=== PATIENT | male | born 1945 | race Caucasian/White ===

== ENCOUNTER → 2016-10-23 | Outpatient (REF) | payer MEDICARE, BC ==
[~2016-10-23] MED LIST: ADV500INH INH; ALBU17IN INH; ALLE180T33 PO; AMLO5TAB2 PO; ASPI1TAB PO; ATOR40TA PO; FARX1TAB2 PO; FOLI1TAB2 PO; FURO20TA2 PO; GUAI1TAB PO; INSUDET SC; LISI-538 PO; METF1000 PO; MUCI600T34 PO; POTA10CA PO; ROPI0.5T PO; SING10TA32 PO
== END ==
LOC: M SFHCADAM 15:52
PROVIDERS: ATTEND Family Medicine
DX: R39.198 Other difficulties with micturition (principal)

== ENCOUNTER → 2016-10-29 | Outpatient (CLI) | payer MEDICARE, BC ==
[~2016-10-29] VITALS: Ht 170.2 cm; Wt 118.8 kg
[~2016-10-29] MED LIST changes: +LIDOCAINE 2% INJ 100 MG/5 ML SDV (FOR ANES.) As Ordered ONE; +NS 1,000 ML IV SCH; +PROPOFOL 200 MG/20 ML VIAL As Ordered ONE
--- NOTE | 2016-10-29 12:24 | ROOR ---
Patient Name: Yadiel Celeste Procedure Date: 10/29/2016 12:03 PM Date of : 1945 Age: 71 Room: [facility] Gender: Male Note Status: Finalized Procedure: Colonoscopy Indications: Hematochezia Providers: Diego Han DO Referring MD: Evie Carter DO Requesting Provider: Medicines: Propofol per Anesthesia Complications: No immediate complications. Procedure: Pre-Anesthesia Assessment: - Prior to the procedure, a History and Physical was performed, and patient medications and allergies were reviewed. The patient is competent. The risks and benefits of the procedure and the sedation options and risks were discussed with the patient. All questions were answered and informed consent was obtained. Patient identification and proposed procedure were verified by the physician, the nurse, the anesthesiologist and the systems protection technician in the endoscopy suite. Mental Status Examination: alert and oriented. Airway Examination: normal oropharyngeal airway and neck mobility. Respiratory Examination: clear to auscultation. CV Examination: normal. Prophylactic Antibiotics: The patient does not require prophylactic antibiotics. Prior Anticoagulants: The patient has taken no previous anticoagulant or antiplatelet agents. ASA Grade Assessment: III - A patient with severe systemic disease. After reviewing the risks and benefits, the patient was deemed in satisfactory condition to undergo the procedure. The anesthesia plan was to use monitored anesthesia care (MAC). Immediately prior to administration of medications, the patient was re-assessed for adequacy to receive sedatives. The heart rate, respiratory rate, oxygen saturations, blood pressure, adequacy of pulmonary ventilation, and response to care were monitored throughout the procedure. The physical status of the patient was re-assessed after the procedure. The Colonoscope was introduced through the anus and advanced to the cecum, identified by appendiceal orifice and ileocecal valve. The colonoscopy was performed without difficulty. The patient tolerated the procedure well. Findings: The perianal exam findings include non-thrombosed internal hemorrhoids and internal hemorrhoids that prolapse with straining, but spontaneously regress to the resting position (Grade II). A few small-mouthed diverticula were found in the sigmoid colon. The exam was otherwise without abnormality on direct and retroflexion views. Impression: - Non-thrombosed internal hemorrhoids and internal hemorrhoids that prolapse with straining, but spontaneously regress to the resting position (Grade II) found on perianal exam. - Diverticulosis in the sigmoid colon. - The examination was otherwise normal on direct and retroflexion views. - No specimens collected. Recommendation: - Patient has a contact number available for emergencies. The signs and symptoms of potential delayed complications were discussed with the patient. Return to normal activities tomorrow. Written discharge instructions were provided to the patient. - Repeat colonoscopy in 5-10 years for screening purposes. Diego Han DO 10/29/2016 12:24:20 PM This report has been signed electronically. Number of Addenda: 0 Note Initiated On: 10/29/2016 12:03 PM Estimated Blood Loss: Estimated blood loss: none.
[2016-10-29 12:50] VITALS: BP 147/92
== END ==
LOC: M OPP 11:17
PROVIDERS: ATTEND Surgery
DX: K92.1 Melena (principal); K64.1 Second degree hemorrhoids; K57.30 Diverticulosis of large intestine without perforation or abscess without bleeding; E11.9 Type 2 diabetes mellitus without complications; I11.9 Hypertensive heart disease without heart failure; Z85.830 Personal history of malignant neoplasm of bone; Z85.3 Personal history of malignant neoplasm of breast; Z96.651 Presence of right artificial knee joint; Z96.652 Presence of left artificial knee joint; M43.20 Fusion of spine, site unspecified; Z87.891 Personal history of nicotine dependence; Z79.82 Long term (current) use of aspirin; Z79.899 Other long term (current) drug therapy; Z88.5 Allergy status to narcotic agent

== ENCOUNTER → 2017-01-24 | Outpatient (CLI) | payer MEDICARE, BC ==
[~2017-01-24] MED LIST changes: -LIDOCAINE 2% INJ 100 MG/5 ML SDV (FOR ANES.) As Ordered ONE; -NS 1,000 ML IV SCH; -PROPOFOL 200 MG/20 ML VIAL As Ordered ONE
== END ==
LOC: M ADAMS 10:36
PROVIDERS: ATTEND Family Medicine
DX: E11.9 Type 2 diabetes mellitus without complications (principal)

== ENCOUNTER → 2017-02-09 | Outpatient (CLI) | payer MEDICARE, BC | LOC: M ADAMS 09:47 | PROVIDERS: ATTEND Family Medicine | DX: E11.9 Type 2 diabetes mellitus without complications (principal); M25.512 Pain in left shoulder ==

== ENCOUNTER → 2018-01-21 | Outpatient (CLI) | payer MEDICARE, BC ==
[2018-01-21 14:30] LABS: ALBUMIN 3.7 GM/DL (3.2-5.2); ALBUMIN/GLOBULIN RATIO 1.09 (1.00-1.93); ALKALINE PHOSPHATASE 90 U/L (45-117); ALT/SGPT 34 U/L (12-78); ANION GAP 6 MEQ/L (8-16); AST/SGOT 22 U/L (7-37); BILIRUBIN,TOTAL 0.6 MG/DL (0.2-1.0); BLOOD UREA NITROGEN 15 MG/DL (7-18); CARBON DIOXIDE LEVEL 28 MEQ/L (21-32); CHLORIDE LEVEL 107 MEQ/L (98-107); CHOLESTEROL LEVEL 136 MG/DL (<200); CHOLESTEROL RISK RATIO 2.833 (<5); CREATININE FOR GFR 0.94 MG/DL (0.70-1.30); FREE T4 0.88 NG/DL (0.76-1.46); GLOMERULAR FILTRATION RATE > 60.0 (>42); GLUCOSE, FASTING 153 MG/DL (70-100); HDL CHOLESTEROL 48 MG/DL (>40); LDL CHOLESTEROL 67.8 MG/DL (<100); NON-HDL-C 88 MG/DL; POTASSIUM SERUM 4.7 MEQ/L (3.5-5.1); SODIUM LEVEL 141 MEQ/L (136-145); TOTAL PROTEIN 7.1 GM/DL (6.4-8.2); TRIGLYCERIDES LEVEL 101 MG/DL (<150)
[2018-01-21 14:37] LABS: CREATININE, URINE 68.8 MG/DL; MALB URINE SIEMENS 63.3 MG/L
[2018-01-21 14:47] LABS: ESTIMATED AVERAGE GLUCOSE 169 MG/DL (60-110); HEMOGLOBIN A1c 7.5 %
== END ==
LOC: M SMT 10:15
DX: Z00.01 Encounter for general adult medical examination with abnormal findings (principal); E11.9 Type 2 diabetes mellitus without complications
CPT/HCPCS: 84443

== ENCOUNTER → 2018-04-16 | Outpatient (CLI) | payer MEDICARE, BC ==
[2018-04-16 12:42] LABS: ANION GAP 8 MEQ/L (8-16); BLOOD UREA NITROGEN 14 MG/DL (7-18); CALCIUM LEVEL 8.5 MG/DL (8.8-10.2); CARBON DIOXIDE LEVEL 28 MEQ/L (21-32); CHLORIDE LEVEL 108 MEQ/L (98-107); CREATININE FOR GFR 0.93 MG/DL (0.70-1.30); GLOMERULAR FILTRATION RATE > 60.0 (>42); GLUCOSE, FASTING 110 MG/DL (70-100); POTASSIUM SERUM 4.4 MEQ/L (3.5-5.1); SODIUM LEVEL 144 MEQ/L (136-145)
[2018-04-16 12:43] LABS: ESTIMATED AVERAGE GLUCOSE 166 MG/DL (60-110); HEMOGLOBIN A1c 7.4 %
== END ==
LOC: M SMT 09:52
DX: E11.9 Type 2 diabetes mellitus without complications (principal)
CPT/HCPCS: 83036

== ENCOUNTER → 2018-04-27 | Outpatient (CLI) | payer MEDICARE, BC | LOC: M SMT 11:30 | DX: M19.011 Primary osteoarthritis, right shoulder (principal) | CPT/HCPCS: 73030 ==

== ENCOUNTER → 2018-06-09 | Outpatient (CLI) | payer MEDICARE, BC ==
[2018-06-09 14:48] LABS: ALBUMIN 3.8 GM/DL (3.2-5.2); ALBUMIN/GLOBULIN RATIO 1.23 (1.00-1.93); ALKALINE PHOSPHATASE 78 U/L (45-117); ALT/SGPT 34 U/L (12-78); ANION GAP 11 MEQ/L (8-16); AST/SGOT 21 U/L (7-37); BILIRUBIN,TOTAL 0.5 MG/DL (0.2-1.0); BLOOD UREA NITROGEN 16 MG/DL (7-18); CALCIUM LEVEL 8.9 MG/DL (8.8-10.2); CARBON DIOXIDE LEVEL 25 MEQ/L (21-32); CHLORIDE LEVEL 108 MEQ/L (98-107); CHOLESTEROL LEVEL 131 MG/DL (<200); CHOLESTEROL RISK RATIO 2.911 (<5); CREATININE FOR GFR 0.87 MG/DL (0.70-1.30); FREE T4 0.86 NG/DL (0.76-1.46); GLOMERULAR FILTRATION RATE > 60.0 (>42); GLUCOSE, FASTING 129 MG/DL (70-100); HDL CHOLESTEROL 45 MG/DL (>40); LDL CHOLESTEROL 59.4 MG/DL (<100); NON-HDL-C 86 MG/DL; POTASSIUM SERUM 4.4 MEQ/L (3.5-5.1); SODIUM LEVEL 144 MEQ/L (136-145); TOTAL PROTEIN 6.9 GM/DL (6.4-8.2); TRIGLYCERIDES LEVEL 133 MG/DL (<150)
[2018-06-09 15:20] LABS: MALB URINE SIEMENS 19.2 MG/L; MAU/CREAT RATIO 18.1 MCG/MG (0.0-30.0)
[2018-06-09 17:03] LABS: ESTIMATED AVERAGE GLUCOSE 174 MG/DL (60-110); HEMOGLOBIN A1c 7.7 %
== END ==
LOC: M SMT 08:53
DX: E66.01 Morbid (severe) obesity due to excess calories (principal); E11.65 Type 2 diabetes mellitus with hyperglycemia
CPT/HCPCS: 84443

== ENCOUNTER → 2018-10-22 | Outpatient (CLI) | payer MEDICARE, OTHER ==
[~2018-10-22] MED LIST changes: -AMLO5TAB2 PO; +AMLO5TAB6 PO; -ATOR40TA PO; +ATOR40TA75 PO; -FARX1TAB2 PO; +FARX1TAB3 PO; +FOLI1TAB11 PO; -FOLI1TAB2 PO; +KLOR10TA76 PO; -METF1000 PO; +METF10004 PO; -MUCI600T34 PO; +MUCI600T37 PO; -POTA10CA PO
[2018-10-22 12:14] LABS: BLOOD UREA NITROGEN 16 MG/DL (7-18); CALCIUM LEVEL 8.6 MG/DL (8.8-10.2); CARBON DIOXIDE LEVEL 28 MEQ/L (21-32); CHLORIDE LEVEL 105 MEQ/L (98-107); CREATININE FOR GFR 0.89 MG/DL (0.70-1.30); GLOMERULAR FILTRATION RATE > 60.0 (>42); GLUCOSE, FASTING 120 MG/DL (70-100); POTASSIUM SERUM 4.7 MEQ/L (3.5-5.1); SODIUM LEVEL 141 MEQ/L (136-145)
[2018-10-22 13:25] LABS: HEMOGLOBIN A1c 7.8 %
== END ==
LOC: M SMT 09:13
PROVIDERS: ATTEND Physician Assistant
DX: E11.65 Type 2 diabetes mellitus with hyperglycemia (principal)

== ENCOUNTER → 2019-01-11 | Outpatient (REF) | payer MEDICARE ==
[~2019-01-11] MED LIST changes: -ASPI1TAB PO; +ASPI81TA26 PO
== END ==
LOC: M LAB REF 17:41
PROVIDERS: ATTEND Physician Assistant
DX: R31.29 Other microscopic hematuria (principal)

== ENCOUNTER → 2019-01-24 | Outpatient (CLI) | payer MEDICARE ==
[2019-01-24 13:24] LABS: BASO # 0.1 10^3/uL (0.0-0.2); BASO % 0.5 % (0.0-1.0); EOS # 0.1 10^3/uL (0.0-0.50); EOS % 1.3 % (0.0-3.0); HEMATOCRIT 47.4 % (42.0-52.0); HEMOGLOBIN 14.9 g/dl (13.5-17.5); LYMPH # 2.6 10^3/uL (1.5-4.5); LYMPH % 23.7 % (24.0-44.0); MEAN CORPUSCULAR HEMOGLOBIN 29.4 pg (27.0-33.0); MEAN CORPUSCULAR HGB CONC 31.4 g/dl (32.0-36.5); MEAN CORPUSCULAR VOLUME 93.5 fl (80.0-96.0); MONO # 0.7 10^3/uL (0.0-0.8); NEUTROPHILS # 7.4 10^3/uL (1.8-7.7); NEUTROPHILS % 68.2 % (36.0-66.0); PLATELET COUNT, AUTOMATED 353 10^3/uL (150-450); RED BLOOD COUNT 5.07 10^6/uL (4.30-6.10); WHITE BLOOD COUNT 10.9 10^3/uL (4.0-10.0)
[2019-01-24 13:50] LABS: ALT/SGPT 37 U/L (12-78); BILIRUBIN,TOTAL 0.4 MG/DL (0.2-1.0); BLOOD UREA NITROGEN 14 MG/DL (7-18); CALCIUM LEVEL 8.8 MG/DL (8.8-10.2); CARBON DIOXIDE LEVEL 31 MEQ/L (21-32); CHLORIDE LEVEL 108 MEQ/L (98-107); CHOLESTEROL LEVEL 132 MG/DL (<200); CREATININE FOR GFR 0.92 MG/DL (0.70-1.30); GLOMERULAR FILTRATION RATE > 60.0 (>42); GLUCOSE, FASTING 117 MG/DL (70-100); HDL CHOLESTEROL 45 MG/DL (>40); POTASSIUM SERUM 4.8 MEQ/L (3.5-5.1); SODIUM LEVEL 142 MEQ/L (136-145); TRIGLYCERIDES LEVEL 114 MG/DL (<150)
[2019-01-24 13:51] LABS: ALBUMIN 3.5 GM/DL (3.2-5.2); CHOLESTEROL RISK RATIO 2.933 (<5); FREE T4 0.87 NG/DL (0.76-1.46); LDL CHOLESTEROL 64 MG/DL (<100); NON-HDL-C 87 MG/DL; TOTAL PROTEIN 6.9 GM/DL (6.4-8.2)
[2019-01-24 14:31] LABS: CREATININE, URINE 77.1 MG/DL; MALB URINE SIEMENS 8.9 MG/L; MAU/CREAT RATIO 11.5 MCG/MG (0.0-30.0)
[2019-01-26 10:14] LABS: PSA TOTAL 1.5 ng/mL (0.0-4.0)
== END ==
LOC: M SMT 09:20
PROVIDERS: ATTEND Family Medicine
DX: E11.65 Type 2 diabetes mellitus with hyperglycemia (principal); E78.2 Mixed hyperlipidemia; I10 Essential (primary) hypertension; R35.0 Frequency of micturition

== ENCOUNTER → 2019-04-22 | Outpatient (CLI) | payer MEDICARE ==
[2019-04-22 13:31] LABS: BLOOD UREA NITROGEN 17 MG/DL (7-18); CALCIUM LEVEL 8.6 MG/DL (8.8-10.2); CARBON DIOXIDE LEVEL 29 MEQ/L (21-32); CHLORIDE LEVEL 109 MEQ/L (98-107); CREATININE FOR GFR 0.93 MG/DL (0.70-1.30); GLOMERULAR FILTRATION RATE > 60.0 (>42); GLUCOSE, FASTING 135 MG/DL (70-100); POTASSIUM SERUM 4.5 MEQ/L (3.5-5.1); SODIUM LEVEL 143 MEQ/L (136-145)
[2019-04-22 14:03] LABS: HEMOGLOBIN A1c 7.3 %
== END ==
LOC: M SMT 09:50
PROVIDERS: ATTEND Physician Assistant
DX: Z00.00 Encounter for general adult medical examination without abnormal findings (principal); E11.65 Type 2 diabetes mellitus with hyperglycemia

== ENCOUNTER → 2019-05-02 | Outpatient (CLI) | payer MEDICARE | LOC: M SMT 13:03 | PROVIDERS: ATTEND Family Medicine | DX: M79.675 Pain in left toe(s) (principal) ==

== ENCOUNTER → 2019-07-25 | Outpatient (CLI) | payer MEDICARE ==
[2019-07-25 10:39] LABS: ALBUMIN 3.3 GM/DL (3.2-5.2); ALT/SGPT 28 U/L (12-78); BILIRUBIN,TOTAL 0.5 MG/DL (0.2-1.0); BLOOD UREA NITROGEN 16 MG/DL (7-18); CALCIUM LEVEL 8.7 MG/DL (8.8-10.2); CARBON DIOXIDE LEVEL 30 MEQ/L (21-32); CHLORIDE LEVEL 107 MEQ/L (98-107); CREATININE FOR GFR 0.96 MG/DL (0.70-1.30); GLOMERULAR FILTRATION RATE > 60.0 (>42); GLUCOSE, FASTING 132 MG/DL (70-100); POTASSIUM SERUM 4.6 MEQ/L (3.5-5.1); SODIUM LEVEL 141 MEQ/L (136-145); TOTAL PROTEIN 6.7 GM/DL (6.4-8.2)
[2019-07-25 11:22] LABS: HEMOGLOBIN A1c 6.9 %
== END ==
LOC: M SMT 09:01
PROVIDERS: ATTEND Family Medicine
DX: E11.65 Type 2 diabetes mellitus with hyperglycemia (principal)

== ENCOUNTER 2019-08-06 23:34 | Inpatient (IN) | payer MEDICARE ==
[~2019-08-06] VITALS: Ht 175.3 cm; Wt 126.0 kg
[2019-08-07] VITALS (8 sets, daily range): BP systolic 146–190; BP diastolic 63–98
[2019-08-07 00:09] LABS: BASO # 0.1 10^3/uL (0.0-0.2); BASO % 0.4 % (0.0-1.0); EOS # 0.1 10^3/uL (0.0-0.5); EOS % 0.7 % (0.0-3.0); HEMATOCRIT 42.7 % (42.0-52.0); HEMOGLOBIN 13.8 g/dl (13.5-17.5); LYMPH # 2.3 10^3/uL (1.5-5.0); LYMPH % 17.9 % (24.0-44.0); MEAN CORPUSCULAR HEMOGLOBIN 29.6 pg (27.0-33.0); MEAN CORPUSCULAR HGB CONC 32.3 g/dl (32.0-36.5); MEAN CORPUSCULAR VOLUME 91.4 fl (80.0-96.0); MONO % 7.7 % (0.0-5.0); NEUTROPHILS # 9.3 10^3/uL (1.5-8.5); NEUTROPHILS % 72.4 % (36.0-66.0); PLATELET COUNT, AUTOMATED 281 10^3/uL (150-450); RED BLOOD COUNT 4.67 10^6/uL (4.30-6.10); WHITE BLOOD COUNT 12.8 10^3/uL (4.0-10.0)
[2019-08-07] MEDS ORDERED: MUCI1TAB18 PO (00:21)
[2019-08-07 00:29] LABS: ALBUMIN 3.5 GM/DL (3.2-5.2); ALT/SGPT 26 U/L (12-78); BILIRUBIN,DIRECT < 0.1 MG/DL (0.0-0.2); BILIRUBIN,TOTAL 0.3 MG/DL (0.2-1.0); BLOOD UREA NITROGEN 15 MG/DL (7-18); CALCIUM LEVEL 8.4 MG/DL (8.8-10.2); CARBON DIOXIDE LEVEL 24 MEQ/L (21-32); CHLORIDE LEVEL 107 MEQ/L (98-107); CK-MB VALUE MASS 2.9 NG/ML (<3.6); CPK CREATINE PHOSPHOKINASE 222 U/L (39-308); CREATININE FOR GFR 1.09 MG/DL (0.70-1.30); GLOMERULAR FILTRATION RATE > 60.0 (>42); GLUCOSE, FASTING 253 MG/DL (70-100); LIPASE 149 U/L (73-393); MB/CK RELATIVE INDEX 1.31 (< OR =4); SODIUM LEVEL 141 MEQ/L (136-145); TOTAL PROTEIN 6.9 GM/DL (6.4-8.2); TROPONIN I < 0.02 NG/ML (< 0.10)
[2019-08-07] MEDS ORDERED: ONDANSETRON 4MG/2ML VIAL (J2405) As Ordered ONE (00:32)
[2019-08-07] MEDS ORDERED: ONDANSETRON 4MG/2ML VIAL (J2405) IV ONE (00:45)
--- NOTE | 2019-08-07 01:10 | REPVR ---
PROCEDURE INFORMATION: Exam: CT Abdomen And Pelvis With Contrast Exam date and time: 08/07/2019 1:35 AM Clinical history: 74 years old, male; Abdominal pain; Generalized; Additional info: Generalized abd pain TECHNIQUE: Imaging protocol: Computed tomography of the abdomen and pelvis with intravenous contrast. Radiation optimization: All CT scans at this facility use at least one of these dose optimization techniques: automated exposure control; mA and/or kV adjustment per patient size (includes targeted exams where dose is matched to clinical indication); or iterative reconstruction. Contrast material: ISOVUE 370; Contrast volume: 100 ml; Contrast route: IV; COMPARISON: CT ABD PELVIS WITH CONTRAST 09/11/2016 1:39 PM FINDINGS: Lungs: No suspicious mass or airspace process in the visualized lung bases. Liver: Liver appears normal with no focal abnormality. Gallbladder and bile ducts: Solitary gallstone measuring 15 mm is present in the gallbladder neck as seen previously. No biliary ductal dilatation. Pancreas: Pancreas appears normal. No focal mass or peripancreatic inflammation. Spleen: Spleen appears homogeneous without focal mass. Adrenals: Adrenal glands are normal in appearance. Kidneys and ureters: Kidneys appear normal, with no stone, solid mass or hydronephrosis. Stomach and bowel: No evidence of small bowel obstruction. No evidence of acute diverticulitis. Appendix: Normal caliber appendix is identified, with no adjacent inflammation. Intraperitoneal space: No pneumoperitoneum. Vasculature: Retroaortic left renal vein is present. Atherosclerotic change present in the aorta, without aneurysm. Lymph nodes: No enlarged lymph nodes. Bladder: Urinary bladder appears normal. Reproductive: Dystrophic prostate calcifications are noted. Bones/joints: Bony structures are normal except for lumbar spine degenerative disc changes. Soft tissues: Unremarkable. IMPRESSION: 1. Cholelithiasis. No evidence of biliary obstruction or acute cholecystitis. 2. No other acute or concerning focal abnormality Electronically signed by: Emery Anderson On 08/07/2019 01:10:01 AM
[2019-08-07] MEDS: MORPHINE 4 MG/ML 1ML VIAL/SYRINGE (J2270) IV PRN ×2 (01:12→01:24)
[2019-08-07] MEDS ORDERED: ISOVUE-370 76% 100ML VIAL (Q9967) As Ordered ONE (01:29)
--- NOTE | 2019-08-07 01:49 | REPVR ---
PROCEDURE INFORMATION: Exam: US Abdomen Limited, Right Upper Quadrant Exam date and time: 08/07/2019 1:42 AM Clinical history: 74 years old, male; Abdominal pain; Additional info: Ruq abd pain TECHNIQUE: Imaging protocol: Real-time ultrasound of the abdomen with image documentation. Examination was focused on the right upper quadrant. COMPARISON: No relevant prior studies available. FINDINGS: Pancreas is sonographically normal. Liver is homogeneous in echotexture, with no focal lesion. Gallbladder contains at least one intraluminal stone. No gallbladder wall thickening (3 mm). Common bile duct measures 4 mm in diameter. Right kidney measures 11.3 cm in long axis. Right kidney appears normal. No free fluid. IMPRESSION: Cholelithiasis with at least one stone measuring 2 cm in the gallbladder neck. This appears nonmobile. No evidence of biliary obstruction or gallbladder wall thickening to convincingly suggest cholecystitis Electronically signed by: Emery Anderson On 08/07/2019 01:49:21 AM
[2019-08-07] MEDS ORDERED: HYDROMORPHONE HCL 0.5 MG/ 0.5 ML SYRINGE (J1170 PER 1) IV PRN (02:45)
[2019-08-07] MEDS ORDERED: PIPERACILLIN/TAZOBACTAM SOD 3.375 GM in D5W MINI-BAG PLUS 50 ML IV ONE (02:45)
[2019-08-07] MEDS ORDERED: TAMS1CAP17 PO (03:24)
[2019-08-07] MEDS ORDERED: VENTAER INH (03:24)
[2019-08-07] MEDS ORDERED: LISI40TA PO (03:24)
[2019-08-07] MEDS ORDERED: MAGN400C2 PO (03:24)
[2019-08-07] MEDS ORDERED: MUCI30TA5 PO (03:24)
[2019-08-07] MEDS ORDERED: GLUCAGON FOR INJ 1 MG VIAL (J1610) SC PRN (03:30)
[2019-08-07] MEDS ORDERED: ACETAMINOPHEN TAB 650MG DOSE (2X325MG) PO PRN (03:30)
[2019-08-07] MEDS ORDERED: HYDROmorphone 2 MG TAB PO PRN (03:30)
[2019-08-07] MEDS ORDERED: DEXTROSE 50% 50 ML SYRINGE IV PRN (03:30)
[2019-08-07] MEDS ORDERED: ALBUTEROL 90 MCG/ACT 8GM HFA INHALER INH PRN (03:30)
[2019-08-07] MEDS ORDERED: GLUCOSE 4 GM CHEW TABLET PO PRN (03:30)
[2019-08-07] MEDS: NS 1,000 ML IV SCH ×3 (03:30→23:30)
[2019-08-07] MEDS ORDERED: METAL LOCK LOOP XX ONE (03:40)
[2019-08-07] MEDS ORDERED: amLODIPine 10 MG TAB PO ONE (04:00)
[2019-08-07] MEDS ORDERED: KETOROLAC 30 MG/ML VIAL (J1885) IV ONE (04:00)
[2019-08-07] MEDS ORDERED: PILL CUTTER 1 EACH XX PRN (04:15)
[2019-08-07] MEDS ORDERED: hydrALAZINE INJ 20 MG/ML VIAL IV PRN (04:15)
--- NOTE | 2019-08-07 04:24 | HPEPDOC ---
[facility] Medical History & Physical Date of Admission Aug 07, 2019 Date of Service: Aug 07, 2019 Primary Care Physician: SHARAN ALVARADO DO Attending Physician: JAMEY SPARKS MD History and Physical CHIEF COMPLAINT: Abdominal pain HISTORY OF PRESENT ILLNESS: Patient is a 71-year-old gentleman with a past medical history significant for diabetes, hyperlipidemia, hypertension, COPD, emphysema, male breast cancer approximately 44 years ago, ALCIDES, obesity. Presenting with an acute complaint of abdominal pain that started around 8 AM on 08/16/2019. According to patient, he had just finished eating dinner, when he developed sharp abdominal pain, that felt like a heart attack. Patient stated that he took one of his 's nitroglycerin tablets and felt minor improvement. Patient also noticed that with onset of pain. He began to have abdominal bloating. He also admitted to shortness of breath due to his abdominal bloating. Patient admits to dry heaves, with 2 episodes of vomitus that was nonbilious, non-hemoptysis. He admits to chronic diarrhea, of 2-3 times a day of loose stool. Although he still has they recently he has began to have more formed stools. He denies any recent changes, denies any weight loss, denies any recent travels. On admission patient was hypertensive, afebrile, requiring supplemental oxygen due to decreasing O2 saturation. CT scan showed cholelithiasis, hospitalist team was called for admission with surgical consultation. PAST MEDICAL HISTORY: Diabetes, ALCIDES, hyperlipidemia, hypertension, COPD, emphysema, breast cancer approximately 44 years ago, PAST SURGICAL HISTORY: : Left and right knee arthroplasty, right shoulder arthroscopy, left shoulder arthroscopy and a prior neck surgery. Excision of left breast lesion, malignant 44-years ago. SOCIAL HISTORY: Visit his , patient's last smoking when he was 44 years ago, prior to that smoked 2 packs a day. Occasional alcohol drinker. FAMILY HISTORY: Mother is from breast cancer, father of old age ALLERGIES: Please see below. REVIEW OF SYSTEMS: CONSTITUTIONAL: No fevers, denies chills, denies weight loss, denies lethargy HEENT: No rhinorrhea, no itchy eyes, no congesion, No tonsilor exudates CARDIOVASCULAR: No murmurs no palpitations and arrhythmias RESPIRATORY: Not cough, No SOB, no issues to report GASTROINTESTINAL: Admits nausea, admits to one episode of vomiting, no difficulty swallowing, admits to abdominal bloating HEMATOLOGICAL: No bleeding GENITOURINARY:No Issues HEMATOLOGIC/LYMPHATIC: No swelling, No bleeding PE GENERAL APPEARANCE: Alert no acute distress. Obese gentleman, signed by family SKIN: Warm, well perfused. LUNGS: Clear to auscultation bilaterally. HEART: Normal S1, S2. No murmurs, no rubs, no gallops ABDOMEN: Soft. No masses. Bowel sounds are present. Distended, tender to palpate in all 4 quadrants, bowel sounds present. No signs of acute abdomen, no rigidity TRUNK/SPINE:Straight. EXTREMITIES: Moves all extremities equally. No gross deformities. PULSES: 2+ upper and lower extremity . VIEW OF SYSTEMS: HOME MEDICATIONS: Please see below. LABORATORY DATA: See below. IMAGING: CT abdomen and pelvis IMPRESSION: 1. Cholelithiasis. No evidence of biliary obstruction or acute cholecystitis. 2. No other acute or concerning focal abnormality Gall Bladder Ultrasound Cholelithiasis with at least one stone measuring 2 cm in the gallbladder neck. This appears nonmobile. No evidence of biliary obstruction or gallbladder wall thickening to convincingly suggest cholecystitis MICROBIOLOGY: Please see below. ASSESSMENT/ PLAN: Patient is a 71-year-old gentleman with a past medical history significant for diabetes, hyperlipidemia, hypertension, COPD, emphysema, male breast cancer approximately 44 years ago, ALCIDES, and obesity. Presenting presenting with abdominal pain and bloating secondary a 2 cm stone in the gallbladder neck. He is currently afebrile, his pain is adequately controlled. He will be evaluated by surgery tomorrow. 1. Cholelithiasis -Gall Bladder ultrasound showed a 2 cm stone in the gallbladder neck -NPO -Pain Control -Surgery consult Dr. Madden 2. Diabetes -Continue home medication -Sliding scale meal coverage 3. HTN -Continue home medication -Will add PRN hydralazine for blood pressure systolically over 200 4. Hyperlipidemia -Continue home meds 5. COPD -Continue home meds 6. ALCIDES -ALCIDES protocol 7. DVT -TEDS Compression ATTENDING NOTE: I have independently interviewed and examined the patient, and agree with the documented history,physical exam, and management plan as documented above by my Resident Physician. Vital Signs Vital Signs Date Time Temp Pulse Resp B/P (MAP) Pulse Ox O2 Delivery O2 Flow Rate FiO2 08/07/19 04:12 170/90 (116) 08/07/19 03:42 97.7 97 19 94 Room Air Laboratory Data Labs 24H Laboratory Tests 2 08/06/19 23:51: Immature Granulocyte % (Auto) 0.9, Neutrophils (%) (Auto) 72.4H, Lymphocytes (%) (Auto) 17.9L, Monocytes (%) (Auto) 7.7H, Eosinophils (%) (Auto) 0.7, Basophils (%) (Auto) 0.4, Neutrophils # (Auto) 9.3H, Lymphocytes # (Auto) 2.3, Monocytes # (Auto) 1.0H, Eosinophils # (Auto) 0.1, Basophils # (Auto) 0.1, Nucleated Red Blood Cells % (auto) 0.0, Anion Gap 10, Glomerular Filtration Rate > 60.0, Calcium Level 8.4L, Total Bilirubin 0.3, Direct Bilirubin < 0.1, Aspartate Amino Transf (AST/SGOT) 17, Alanine Aminotransferase (ALT/SGPT) 26, Alkaline Phosphatase 95, Total Creatine Kinase 222, Creatine Kinase MB 2.9, Creatine Kinase MB Relative Index 1.31, Troponin I < 0.02, Total Protein 6.9, Albumin 3.5, Albumin/Globulin Ratio 1.03, Lipase 149 08/07/19 00:05: Urine Color STRAW, Urine Appearance CLEAR, Urine pH 5.0, Urine Specific [place] 1.026, Urine Protein NEGATIVE, Urine Glucose (UA) 3+H, Urine Ketones NEGATIVE, Urine Blood 1+H, Urine Nitrite NEGATIVE, Urine Bilirubin NEGATIVE, Urine Urobilinogen 0.2, Urine Leukocyte Esterase NEGATIVE, Urine WBC (Auto) 0, Urine RBC (Auto) 1, Urine Hyaline Casts (Auto) 0, Urine Bacteria (Auto) NEGATIVE, Urine Squamous Epithelial Cells 0, Urine Sperm (Auto) CBC/BMP Laboratory Tests 08/06/19 23:51 Home Medications Scheduled Amlodipine Besylate (Amlodipine Besylate) 5 Mg Tab, 5 MG PO DAILY Aspirin (Aspirin EC) 81 Mg Tab, 81 MG PO DAILY Atorvastatin Calcium (Atorvastatin Calcium) 40 Mg Tab, 40 MG PO DAILY Dapagliflozin Propanediol (Farxiga) 10 Mg Tab, 10 MG PO DAILY Furosemide (Furosemide) 20 Mg Tab, 20 MG PO DAILY Guaifenesin/Dextromethorphan (Mucinex Dm ER 600-30 mg Tablet) 1 Each Tab.er.12h, 1 TAB PO BID Insulin Detemir (Levemir) 1 Units/0.01 Ml Susp, 96 UNITS SC QHS Lisinopril (Lisinopril) 40 Mg Tablet, 40 MG PO DAILY Magnesium Oxide (Magnesium) 400 Mg Capsule, 400 MG PO QHS Metformin HCl (Metformin HCl) 1,000 Mg Tab, 1,000 MG PO BID Montelukast Sodium (Singulair) 10 Mg Tab, 10 MG PO QHS Potassium Chloride (Klor-Con M10) 10 Meq Tabcr, 10 MEQ PO QHS Ropinirole HCl (Ropinirole HCl) 0.5 Mg Tab, 0.5 MG PO QHS Tamsulosin Hcl (Tamsulosin HCl) 0.4 Mg Capsule, 0.4 MG PO QHS Scheduled PRN Albuterol Sulfate (Ventolin Hfa) 18 Gm Hfa.aer.ad, 2 PUFF INH Q4H PRN for SOB/W HEEZING Allergies Coded Allergies: codeine (Verified Allergy, Severe, anaphylaxis, 08/06/19) GME ATTESTATION GME ATTESTATION My faculty preceptor for this patient encounter was physically present during the encounter and was fully available. All aspects of the patient interview, examination, medical decision making process, and medical care plan development were reviewed and approved by the faculty preceptor. The faculty preceptor is aware and concurs with the plan as stated in the body of this note and will attest to such by his/her cosignature. DEDRA BRADFORD DO Aug 07, 2019 04:24 JAMEY SPARKS MD Aug 07, 2019 04:54
[2019-08-07] MEDS ORDERED: **hydrALAZINE HCL** 25 MG TAB PO ONE (04:30)
[2019-08-07] MEDS: POTASSIUM CHLORIDE 10 MEQ SR TABLET PO SCH ×2 (04:39→19:42)
[2019-08-07] MEDS: MONTELUKAST 10 MG TAB PO SCH ×2 (04:39→19:42)
[2019-08-07] MEDS: rOPINIRole 0.25 MG TAB(REQUIP) PO SCH ×2 (04:39→19:42)
[2019-08-07] MEDS: TAMSULOSIN 0.4 MG CAP PO SCH ×2 (04:40→19:42)
[2019-08-07] MEDS ORDERED: LISINOPRIL 40 MG TAB PO ONE (05:30)
[2019-08-07] MEDS: NITROGLYCERIN 2% OINT 1 GM *U/D* PKT TOP SCH ×4 (06:07→23:41)
[2019-08-07 06:16] LABS: BASO % 0.2 % (0.0-1.0); EOS % 0.1 % (0.0-3.0); HEMATOCRIT 45.1 % (42.0-52.0); HEMOGLOBIN 14.2 g/dl (13.5-17.5); LYMPH # 1.2 10^3/uL (1.5-5.0); LYMPH % 6.8 % (24.0-44.0); MEAN CORPUSCULAR HEMOGLOBIN 29.3 pg (27.0-33.0); MEAN CORPUSCULAR HGB CONC 31.5 g/dl (32.0-36.5); MEAN CORPUSCULAR VOLUME 93.2 fl (80.0-96.0); MONO % 5.6 % (0.0-5.0); NEUTROPHILS # 15.4 10^3/uL (1.5-8.5); NEUTROPHILS % 86.7 % (36.0-66.0); PLATELET COUNT, AUTOMATED 291 10^3/uL (150-450); RED BLOOD COUNT 4.84 10^6/uL (4.30-6.10); WHITE BLOOD COUNT 17.8 10^3/uL (4.0-10.0)
[2019-08-07 06:38] LABS: ALBUMIN 3.6 GM/DL (3.2-5.2); ALT/SGPT 28 U/L (12-78); AMYLASE 23 U/L (25-115); BILIRUBIN,TOTAL 0.4 MG/DL (0.2-1.0); BLOOD UREA NITROGEN 12 MG/DL (7-18); CALCIUM LEVEL 8.9 MG/DL (8.8-10.2); CARBON DIOXIDE LEVEL 26 MEQ/L (21-32); CHLORIDE LEVEL 107 MEQ/L (98-107); CREATININE FOR GFR 0.88 MG/DL (0.70-1.30); GLOMERULAR FILTRATION RATE > 60.0 (>42); GLUCOSE, FASTING 179 MG/DL (70-100); LIPASE 75 U/L (73-393); MAGNESIUM LEVEL 2.4 MG/DL (1.8-2.4); SODIUM LEVEL 140 MEQ/L (136-145)
[2019-08-07] MEDS: HumaLOG INSULIN (NovoLOG) PER UNIT SC SCH ×4 (07:30→19:37)
[2019-08-07] MEDS: metroNIDAZOLE 500 MG in IV 1 EA IV SCH ×3 (07:48→23:21)
[2019-08-07] MEDS: ATORVASTATIN 20 MG TAB PO SCH (08:01)
[2019-08-07] MEDS ORDERED: FUROSEMIDE 20 MG TAB PO SCH (09:00)
[2019-08-07] MEDS ORDERED: metFORMIN (GLUCOPHAGE) 1000 MG TABLET PO SCH (09:00)
[2019-08-07] MEDS ORDERED: amLODIPine 5 MG TAB PO SCH (09:00)
--- NOTE | 2019-08-07 10:44 | REP ---
Clinical: Abdominal distension Technique: Upright view of the chest with supine and upright views of the abdomen and pelvis. Findings: Frontal upright view of the chest demonstrates no acute cardiopulmonary process or free air below the diaphragm to suspect pneumoperitoneum. Supine and upright views of the abdomen and pelvis demonstrate nonspecific bowel gas pattern without obstruction or perforation. No organomegaly. No abnormal calcifications. Skeletal structures normal for age. Impression: Nonspecific bowel gas pattern. Note: Correlation is made with recent CT dated 08/07/2019 at 01:36 a.m. which demonstrated multiple loops of thickened small bowel along with subtle scattered hazy mesentery and mildly prominent mesenteric lymph nodes likely representing an acute infectious/inflammatory enteritis. Electronically Signed by Kristofer Jenkins MD 08/07/2019 10:35 A
[2019-08-07] MEDS: SIMETHICONE 80 MG CHEW TAB PO SCH ×4 (10:49→19:42)
[2019-08-07] MEDS: PIPERACILLIN/TAZOBACTAM SOD 3.375 GM in D5W MINI-BAG PLUS 50 ML IV SCH ×2 (11:48→17:40)
--- NOTE | 2019-08-07 12:00 | ECGEPIP ---
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
--- NOTE | 2019-08-07 14:33 | CR ---
DATE OF CONSULTATION: 08/07/2019 REASON FOR CONSULTATION: Gallstones, elevated white count and abdominal pain. HISTORY OF PRESENT ILLNESS The patient is a 74-year-old male who developed abdominal distension 24 hours ago and had quite severe abdominal pain all across his upper abdomen. He has complained of abdominal bloating some shortness of breath and has had some nausea as well as vomiting. He has had some chronic diarrhea for years, although more recently has not had any significant bowel movements. He has not any fevers or chills since his admission. His white count did bump up today. When he will underwent evaluation he was found to have a CT scan which showed some gallstones, but on reviewing the CT scan he has evidence of this inflammatory changes or thickening of the mesentery around the small bowel even in different areas of his abdomen. And after I saw the patient and I reviewed the CT scan with the radiologist, the radiologist felt that this was much more consistent with an enteritis picture. PAST MEDICAL HISTORY: Significant for history of diabetes mellitus, obstructive sleep apnea, hyperlipidemia, hypertension, COPD, emphysema, breast cancer, left and right knee surgery, right shoulder surgery, left shoulder surgery, prior neck surgery and breast surgery. The patient has a remote history of smoking and physical exam reveals an obese white male who looks stated age. HEENT is unremarkable. Lungs are clear anteriorly. Heart is regular. Abdomen is distended, tympanitic, mostly in the epigastric area without significant guarding, rebound or peritoneal signs, definitely uncomfortable to deep palpation. IMPRESSION AND PLAN The patient does not complain specifically of right upper quadrant pain out of proportion to the rest of his abdomen and I am not appreciating any significant inflammatory changes along the gallbladder itself and thus I anticipate that it is an less likely that he has an acute cholecystitis presentation and it is more likely that this is consistent with more of an enteritis picture given its location. However, the other possibility is that the cholecystitis presentation on his CT scan ultrasound is just delayed in its presentation and thus a HIDA scan is not unreasonable to perform tomorrow. However, if he has resolution of his abdominal pain by tomorrow I would recommend cancelling that order and then progressing his diet. Otherwise at this point supportive care is reasonable. He had been started on some Flagyl and was given one dose of Zosyn. I would recommend expanding that to continue his Zosyn for ongoing purposes especially if we think this is an infectious etiology for this enteritis given his elevated white count. And it may be reasonable to convert it to Cipro or some other broad-spectrum antibiotics as per hospitalist, but otherwise at this point no emergent surgical intervention is necessary and follow-up studies are reasonable such as a HIDA scan as well as GI studies as needed over the next few days.
[2019-08-07] MEDS: LEVEMIR (INSULIN DETEMIR) 1 UNITS/0.01ML SC SCH (19:37)
[2019-08-08] MEDS: PIPERACILLIN/TAZOBACTAM SOD 3.375 GM in D5W MINI-BAG PLUS 50 ML IV SCH ×4 (00:28→18:23)
[2019-08-08 04:57] VITALS: BP 182/89
[2019-08-08] MEDS: NITROGLYCERIN 2% OINT 1 GM *U/D* PKT TOP SCH (05:05)
[2019-08-08 06:00] VITALS: BP 146/69
[2019-08-08 06:07] LABS: BASO % 0.2 % (0.0-1.0); HEMATOCRIT 38.7 % (42.0-52.0); HEMOGLOBIN 12.5 g/dl (13.5-17.5); LYMPH # 1.7 10^3/uL (1.5-5.0); LYMPH % 7.8 % (24.0-44.0); MEAN CORPUSCULAR HGB CONC 32.3 g/dl (32.0-36.5); MEAN CORPUSCULAR VOLUME 92.8 fl (80.0-96.0); MONO # 1.7 10^3/uL (0.0-0.8); MONO % 7.5 % (0.0-5.0); NEUTROPHILS # 18.6 10^3/uL (1.5-8.5); NEUTROPHILS % 83.1 % (36.0-66.0); PLATELET COUNT, AUTOMATED 230 10^3/uL (150-450); RED BLOOD COUNT 4.17 10^6/uL (4.30-6.10); WHITE BLOOD COUNT 22.4 10^3/uL (4.0-10.0)
[2019-08-08 06:35] LABS: ALBUMIN 2.8 GM/DL (3.2-5.2); ALT/SGPT 29 U/L (12-78); BILIRUBIN,TOTAL 1.1 MG/DL (0.2-1.0); BLOOD UREA NITROGEN 12 MG/DL (7-18); CALCIUM LEVEL 8.1 MG/DL (8.8-10.2); CARBON DIOXIDE LEVEL 24 MEQ/L (21-32); CHLORIDE LEVEL 110 MEQ/L (98-107); CREATININE FOR GFR 0.98 MG/DL (0.70-1.30); GLOMERULAR FILTRATION RATE > 60.0 (>42); GLUCOSE, FASTING 149 MG/DL (70-100); LIPASE 53 U/L (73-393); POTASSIUM SERUM 3.6 MEQ/L (3.5-5.1); SODIUM LEVEL 141 MEQ/L (136-145); TOTAL PROTEIN 6.7 GM/DL (6.4-8.2)
[2019-08-08] MEDS: NS 1,000 ML IV SCH ×3 (07:28→22:10)
[2019-08-08] MEDS: HumaLOG INSULIN (NovoLOG) PER UNIT SC SCH ×4 (07:30→21:00)
[2019-08-08 08:15] VITALS: BP 156/86
[2019-08-08] MEDS: SIMETHICONE 80 MG CHEW TAB PO SCH ×4 (08:18→22:03)
[2019-08-08] MEDS: LISINOPRIL 40 MG TAB PO SCH (08:18)
[2019-08-08] MEDS: ATORVASTATIN 20 MG TAB PO SCH (08:18)
[2019-08-08] MEDS: amLODIPine 10 MG TAB PO SCH (08:28)
[2019-08-08] MEDS ORDERED: FLUBLOK(EGG FREE)(QUAD)INFLUENZA VACC 0.5ML SYRINGE (90682)18YRS&OLDER IM ONE (09:00)
[2019-08-08] MEDS ORDERED: KETOROLAC 30 MG/ML VIAL (J1885) IV ONE (13:00)
--- NOTE | 2019-08-08 13:45 | IPNPDOC ---
Text Note Date of Service The patient was seen on 08/08/19. NOTE SUBJECTIVE: Patient was examined at bedside. He was resting comfortably in bed. He had complaints of abdominal pain. He stated that he is able to pass gas. Denies any shortness of breath, denies any chest pain. His blood pressure overnight continued to be elevated, patient has been asymptomatic of elevated blood pressures. OBJECTIVE: PHYSICAL EXAMINATION: GENERAL APPEARANCE: Alert no acute distress. Obese gentleman, resting comfortably in bed SKIN: Warm, well perfused. LUNGS: Clear to auscultation bilaterally. HEART: Normal S1, S2. No murmurs, no rubs, no gallops ABDOMEN: Obese, distended, bowel sounds present, tender to palpate in all 4 quadrants, no rigidity, no rebound tenderness EXTREMITIES: Moves all extremities equally. No gross deformities LABORATORY DATA: Please see below. IMAGING: Abdominal x-ray Nonspecific bowel gas pattern A bladder ultrasound Cholelithiasis with at least one stone measuring 2 cm in the gallbladder neck. This appears nonmobile. No evidence of biliary obstruction or gallbladder wall thickening to convincingly suggest cholecystitis Abdomen/pelvic CT 1. Cholelithiasis. No evidence of biliary obstruction or acute cholecystitis. 2. No other acute or concerning focal abnormality ASSEMENT AND PLAN: ASSESSMENT/ PLAN: Patient is a 71-year-old gentleman with a past medical history significant for diabetes, hyperlipidemia, hypertension, COPD, emphysema, male breast cancer approximately 44 years ago, ALCIDES, and obesity. Presenting presenting with abdominal pain and bloating secondary a 2 cm stone in the gallbladder neck. 1. Cholelithiasis identified on gallbladder ultrasound, with a 2 cm stone in the gallbladder neck. -Dr. Ruben Madden, surgeon, evaluated patient and stated that presentation is most likely consistent with more of an enteritis picture. Based on patient's location. HIDA scan has been recommended, this is scheduled for today. -Will follow-up HIDA scan and manage patient appropriately. -Continue by mouth diet -Pain control with Dilaudid. -continue Zosyn 2. Diabetes -Continue home medication -Sliding scale meal coverage 3. HTN -Continue home medication -Will add PRN hydralazine for blood pressure systolically over 200 -Increase patient's Norvasc from 5 mg 10 mg daily. We'll continue to monitor patient's blood pressure during hospital stay. 4. Hyperlipidemia -Continue home meds 5. COPD -Continue home meds 6. ALCIDES -ALCIDES protocol 7. DVT -TEDS Compression Attending Addendum: I personally saw and examined this patient. I discussed the care and management of this patient with Resident and agree with the plan above. Additional information below: - admitted for abdominal pain, biliary colic vs enteritis, HIDA scan today, continue Zosyn, further management depending on HIDA scan. VS,Fishbone, I+O VS, Fishbone, I+O Laboratory Tests 08/08/19 05:47 Vital Signs Date Time Temp Pulse Resp B/P (MAP) Pulse Ox O2 Delivery O2 Flow Rate FiO2 08/08/19 10:43 108 23 92 Room Air 08/08/19 08:28 156/86 08/08/19 06:00 99.5 I&O- Last 24 Hours up to 6 AM 08/08/19 06:00 Intake Total 2100 ml Output Total 1675 ml Balance 425 ml GME ATTESTATION GME ATTESTATION My faculty preceptor for this patient encounter was physically present during the encounter and was fully available. All aspects of the patient interview, examination, medical decision making process, and medical care plan development were reviewed and approved by the faculty preceptor. The faculty preceptor is aware and concurs with the plan as stated in the body of this note and will attest to such by his/her cosignature. DEDRA BRADFORD DO Aug 08, 2019 10:59 VIK ARECHIGA MD Aug 08, 2019 17:14
[2019-08-08 22:00] VITALS: BP 158/79
[2019-08-08] MEDS: rOPINIRole 0.25 MG TAB(REQUIP) PO SCH (22:03)
[2019-08-08] MEDS: POTASSIUM CHLORIDE 10 MEQ SR TABLET PO SCH (22:03)
[2019-08-08] MEDS: MONTELUKAST 10 MG TAB PO SCH (22:03)
[2019-08-08] MEDS: TAMSULOSIN 0.4 MG CAP PO SCH (22:03)
[2019-08-08] MEDS: LEVEMIR (INSULIN DETEMIR) 1 UNITS/0.01ML SC SCH (22:05)
[2019-08-09] MEDS: PIPERACILLIN/TAZOBACTAM SOD 3.375 GM in D5W MINI-BAG PLUS 50 ML IV SCH ×2 (00:22→05:30)
[2019-08-09 06:00] VITALS: BP 133/64
[2019-08-09 07:08] LABS: BASO % 0.1 % (0.0-1.0); EOS % 0.1 % (0.0-3.0); HEMATOCRIT 36.7 % (42.0-52.0); HEMOGLOBIN 11.8 g/dl (13.5-17.5); LYMPH # 1.5 10^3/uL (1.5-5.0); LYMPH % 7.9 % (24.0-44.0); MEAN CORPUSCULAR HEMOGLOBIN 29.9 pg (27.0-33.0); MEAN CORPUSCULAR HGB CONC 32.2 g/dl (32.0-36.5); MEAN CORPUSCULAR VOLUME 93.1 fl (80.0-96.0); MONO # 1.2 10^3/uL (0.0-0.8); MONO % 6.6 % (0.0-5.0); NEUTROPHILS # 15.7 10^3/uL (1.5-8.5); NEUTROPHILS % 83.9 % (36.0-66.0); PLATELET COUNT, AUTOMATED 230 10^3/uL (150-450); RED BLOOD COUNT 3.94 10^6/uL (4.30-6.10); WHITE BLOOD COUNT 18.8 10^3/uL (4.0-10.0)
--- NOTE | 2019-08-09 07:20 | REP ---
Radionuclide biliary scan: The study is performed with mebrofenin radiolabeled with 6.3 mCi of technetium 99m. Imaging is performed at 5-minute intervals for 60 minutes. There is biliary to bowel transit at 10 minutes. There is normal hepatic washout. There is gradually increasing small bowel radiolabeling throughout the 60 minutes of the examination. There is no gallbladder radiolabeling. Impression: The findings are compatible with cystic duct obstruction. There is no common biliary duct obstruction. Electronically Signed by Diego Almeida MD 08/09/2019 07:11 A
[2019-08-09 07:29] LABS: ALBUMIN 2.4 GM/DL (3.2-5.2); ALT/SGPT 38 U/L (12-78); BILIRUBIN,TOTAL 1.2 MG/DL (0.2-1.0); BLOOD UREA NITROGEN 14 MG/DL (7-18); CALCIUM LEVEL 8.1 MG/DL (8.8-10.2); CARBON DIOXIDE LEVEL 23 MEQ/L (21-32); CHLORIDE LEVEL 106 MEQ/L (98-107); CREATININE FOR GFR 0.89 MG/DL (0.70-1.30); GLOMERULAR FILTRATION RATE > 60.0 (>42); GLUCOSE, FASTING 97 MG/DL (70-100); LIPASE 77 U/L (73-393); POTASSIUM SERUM 3.4 MEQ/L (3.5-5.1); SODIUM LEVEL 137 MEQ/L (136-145); TOTAL PROTEIN 6.2 GM/DL (6.4-8.2)
[2019-08-09] MEDS: HumaLOG INSULIN (NovoLOG) PER UNIT SC SCH ×4 (07:30→20:45)
[2019-08-09] MEDS ORDERED: POTASSIUM CHLORIDE 10 MEQ SR TABLET PO ONE ×2 (08:00→12:00)
[2019-08-09] MEDS: NS 1,000 ML IV SCH (08:57)
[2019-08-09] MEDS: LISINOPRIL 40 MG TAB PO SCH (08:58)
[2019-08-09] MEDS: amLODIPine 10 MG TAB PO SCH (08:58)
[2019-08-09] MEDS: ATORVASTATIN 20 MG TAB PO SCH (08:58)
[2019-08-09] MEDS: SIMETHICONE 80 MG CHEW TAB PO SCH ×4 (08:58→20:54)
--- NOTE | 2019-08-09 10:47 | IPNPDOC ---
Text Note Date of Service The patient was seen on 08/09/19. NOTE SUBJECTIVE: Patient was examined in bed today. He complained of ongoing abdom inal pain, as well as constipation. He said he cannot sleep very well because of abdominal pain. He is able to tolerate his cardiac diet. He completed his HIDA scan yesterday. OBJECTIVE: PHYSICAL EXAMINATION: GENERAL APPEARANCE: Alert no acute distress. Obese gentleman, resting comfortably in bed HEENT: NC, AT LUNGS: Clear to auscultation bilaterally. HEART: Normal S1, S2. No murmurs, no rubs, no gallops ABDOMEN: Distended, tender to palpate, no fluid wave, no rebound, no rigidity, no pain out of proportion to exam EXTREMITIES: Moves all extremities equally. No gross deformities LABORATORY DATA: Please see below. IMAGING: Abdominal x-ray Nonspecific bowel gas pattern A bladder ultrasound Cholelithiasis with at least one stone measuring 2 cm in the gallbladder neck. This appears nonmobile. No evidence of biliary obstruction or gallbladder wall thickening to convincingly suggest cholecystitis Abdomen/pelvic CT 1. Cholelithiasis. No evidence of biliary obstruction or acute cholecystitis. 2. No other acute or concerning focal abnormality HIDA SCAN: Impression: The findings are compatible with cystic duct obstruction. There is no common biliary duct obstruction ASSESSMENT/ PLAN: Patient is a 71-year-old gentleman with a past medical history significant for diabetes, hyperlipidemia, hypertension, COPD, emphysema, male breast cancer approximately 44 years ago, ALCIDES, and obesity. Presenting presenting with abdominal pain and bloating secondary a 2 cm stone in the gallbladder neck. 1. Abdominal pain - likely 2/2 acute cholecystitis -HIDA scan showed findings compatible with cystic duct obstruction, with no common biliary duct obstruction -DC Zosyn today, start patient on Flagyl and cefdinir by mouth, we'll continue to monitor patient's WBC, if his pain WBC continues to trend down, he can be followed up as outpatient for cholecystectomy, if not he'll be followed by surgeon for possible percutaneous cholecystectomy tube -Will continue to control his pain with pain meds -Patient has a downtrending white count, he has remained afebrile, no overt signs of infection 2. NIDDM2 -Continue home medication -Sliding scale meal coverage 3. HTN - Suspect blood pressure is moderately elevated as a result of pain - c/w Amlodipine (at adjusted dose), Lisinopril - c/w pain control 4. Hyperlipidemia -Continue home meds 5. COPD - No evidence of exacerbation - c/w inhaled therapy as ordered 6. ALCIDES -ALCIDES protocol 7. DVT -TEDS Compression VS,Fishbone, I+O VS, Fishbone, I+O Laboratory Tests 08/09/19 05:54 Vital Signs Date Time Temp Pulse Resp B/P (MAP) Pulse Ox O2 Delivery O2 Flow Rate FiO2 08/09/19 06:00 97.8 96 22 133/64 (87) 93 Room Air I&O- Last 24 Hours up to 6 AM 08/09/19 06:00 Intake Total 3410 ml Output Total 2250 ml Balance 1160 ml GME ATTESTATION GME ATTESTATION My faculty preceptor for this patient encounter was physically present during the encounter and was fully available. All aspects of the patient interview, examination, medical decision making process, and medical care plan development were reviewed and approved by the faculty preceptor. The faculty preceptor is aware and concurs with the plan as stated in the body of this note and will attest to such by his/her cosignature. ATTENDING NOTE I, Ju Rodrigues, have independently examined this patient and performed my own physical exam, as well as reviewed the documentation and edited where necessary. I have discussed in detail with the resident / student the findings and plan of treatment as documented by the resident / student and edited their note. I agree with their findings and treatment plan and have edited their documentation. I will continue to follow the patient during this hospital stay. Plan: - Discussed case with General Surgery, Dr. Madden - Plan for outpatient cholecystectomy if pain subsides and WBC continues to trend down - If pain / WBC fail to resolve, will consider IR guided cholecystostomy - Will adjust antibiotics to oral regimen with similar coverage profile DEDRA BRADFORD DO Aug 09, 2019 07:49 JU RODRIGUES MD Aug 09, 2019 15:06
[2019-08-09] MEDS: CEFDINIR 300 MG CAP (OMNICEF) PO SCH ×2 (12:01→20:53)
[2019-08-09] MEDS: metroNIDAZOLE (FLAGYL) 500 MG TAB PO SCH ×2 (13:58→21:45)
[2019-08-09 14:00] VITALS: BP 153/65
[2019-08-09] MEDS ORDERED: FUROSEMIDE 40 MG/4 ML VIAL (J1940) IV ONE (15:30)
--- NOTE | 2019-08-09 16:55 | IPN ---
DATE: 08/09/2019 Yesterday's HIDA scan did not come back until quite late, and the report just came in this morning and essentially shows no visualization of the gallbladder consistent with cholecystitis. In general, the patient's white count dropped from 22.4 down to 18.8. This morning, he has had a bowel movement, and he feels much better from an abdominal pain standpoint. He has not any nausea, no vomiting and has been tolerating a regular diet without increasing pain or discomfort. On his abdominal exam, he has some mild discomfort to palpation in the epigastric area, some minimal right upper quadrant tenderness but no significant peritoneal signs. He is very distended still, but it is actually less than he was a couple days ago. IMPRESSION AND PLAN: The patient has evidence of cholecystitis. At this point, he seems to have turned the corner with getting better, and I anticipate he will continue to make some improvements. And if that is the case, I feel his best option is to continue with the antibiotics. If he has a decreasing white count tomorrow, probably converting him over to oral antibiotics and then discharging him to home with follow up in my office next week is reasonable and then we can set up an outpatient laparoscopic cholecystectomy. However, his white count bumps or he has increasing fevers overnight, then I would recommend a percutaneous cholecystostomy tube given his generalized distension. His distension would make it very difficult for operative intervention in a laparoscopic manner. The patient and are present and we have discussed those issues at length, and he understands and would like to see how he does overnight and is agreeable to possible antibiotic treatment and outpatient laparoscopic cholecystectomy.
[2019-08-09] MEDS: POTASSIUM CHLORIDE 10 MEQ SR TABLET PO SCH (20:53)
[2019-08-09] MEDS: rOPINIRole 0.25 MG TAB(REQUIP) PO SCH (20:53)
[2019-08-09] MEDS: LEVEMIR (INSULIN DETEMIR) 1 UNITS/0.01ML SC SCH (20:53)
[2019-08-09] MEDS: MONTELUKAST 10 MG TAB PO SCH (20:53)
[2019-08-09] MEDS: TAMSULOSIN 0.4 MG CAP PO SCH (20:54)
[2019-08-09 22:00] VITALS: BP 139/57
[2019-08-10] MEDS: metroNIDAZOLE (FLAGYL) 500 MG TAB PO SCH (05:38)
[2019-08-10 06:00] VITALS: BP 149/87
[2019-08-10 07:08] LABS: BASO % 0.1 % (0.0-1.0); EOS % 0.2 % (0.0-3.0); HEMATOCRIT 36.6 % (42.0-52.0); HEMOGLOBIN 11.9 g/dl (13.5-17.5); LYMPH # 1.4 10^3/uL (1.5-5.0); LYMPH % 9.2 % (24.0-44.0); MEAN CORPUSCULAR HEMOGLOBIN 29.5 pg (27.0-33.0); MEAN CORPUSCULAR HGB CONC 32.5 g/dl (32.0-36.5); MEAN CORPUSCULAR VOLUME 90.6 fl (80.0-96.0); MONO # 1.1 10^3/uL (0.0-0.8); MONO % 7.1 % (0.0-5.0); NEUTROPHILS # 12.6 10^3/uL (1.5-8.5); NEUTROPHILS % 82.6 % (36.0-66.0); PLATELET COUNT, AUTOMATED 247 10^3/uL (150-450); RED BLOOD COUNT 4.04 10^6/uL (4.30-6.10); WHITE BLOOD COUNT 15.3 10^3/uL (4.0-10.0)
[2019-08-10] MEDS: HumaLOG INSULIN (NovoLOG) PER UNIT SC SCH (07:30)
[2019-08-10 07:31] LABS: ALBUMIN 2.3 GM/DL (3.2-5.2); ALT/SGPT 37 U/L (12-78); BILIRUBIN,TOTAL 0.9 MG/DL (0.2-1.0); BLOOD UREA NITROGEN 10 MG/DL (7-18); CALCIUM LEVEL 8.3 MG/DL (8.8-10.2); CARBON DIOXIDE LEVEL 25 MEQ/L (21-32); CHLORIDE LEVEL 106 MEQ/L (98-107); CREATININE FOR GFR 0.79 MG/DL (0.70-1.30); GLOMERULAR FILTRATION RATE > 60.0 (>42); GLUCOSE, FASTING 101 MG/DL (70-100); LIPASE 102 U/L (73-393); POTASSIUM SERUM 3.1 MEQ/L (3.5-5.1); SODIUM LEVEL 137 MEQ/L (136-145); TOTAL PROTEIN 6.5 GM/DL (6.4-8.2)
[2019-08-10] MEDS ORDERED: POTASSIUM CHLORIDE 10 MEQ SR TABLET PO ONE (08:00)
--- NOTE | 2019-08-10 08:40 | IPN ---
DATE OF SERVICE: 08/10/2019 The patient has been admitted for abdominal pain, epigastric pain and distension. Initial workup revealed possible enteritis; however, further workup after a few days revealed that he had significant increased white count and then a HIDA scan was performed which revealed acute cholecystitis. Since that time, however, his white count has dropped nicely. His abdominal pain has dropped with that and today he complains of no abdominal pain. He still is distended, but has not had any nausea or vomiting and has been having bowel movements. He has been afebrile with a T-max of 99.3. His vitals have been stable. His white count is down to 15.3 from 18.8 yesterday. On his physical exam, he is mildly distended, tympanitic throughout the upper abdomen. No guarding. No rebound. No peritoneal signs are appreciated. On today's exam, he does not have any significant tenderness on palpation. IMPRESSION AND PLAN: The patient has resolving cholecystitis. Despite his positive HIDA scan, I do feel that he should be able to continue with antibiotics and possibly be discharged home on by mouth antibiotics for 7-10 days and follow up with me in approximately 2 weeks. Will plan on an outpatient laparoscopic cholecystectomy thereafter and will discuss further with him at that time.
[2019-08-10] MEDS ORDERED: FUROSEMIDE 20 MG TAB PO SCH (09:00)
[2019-08-10 09:45] VITALS: BP 162/82
[2019-08-10] MEDS ORDERED: FLAG500T PO (10:00)
[2019-08-10] MEDS ORDERED: CEFD300CAP PO (10:00)
[2019-08-10] MEDS: LISINOPRIL 40 MG TAB PO SCH (10:44)
--- NOTE | 2019-08-10 10:47 | DS.PDOC ---
Discharge Summary General Date of Admission Aug 07, 2019 at 02:44 Date of Discharge Aug 10, 2019 Primary Care Physician: SHARAN ALVARADO DO Attending Physician: JU LPOES MD Specialist/Consultants Involve: Ruben Madden Jr Discharge Summary PROCEDURES PERFORMED DURING STAY: [None]. ADMITTING DIAGNOSES / DISCHARGE DIAGNOSES: 1. Abdominal pain - likely 2/2 Acute cholecystitis - 2/2 cholelithiasis 2. Diabetes 3.Hypertension 4.Hyperlipidemia 5.COPD 6.ALCIDES COMPLICATIONS/CHIEF COMPLAINT: Abdominal pain HISTORY OF PRESENT ILLNESS: Patient is a 71-year-old gentleman with a past medical history significant for diabetes, hyperlipidemia, hypertension, COPD, emphysema, male breast cancer approximately 44 years ago, ALCIDES, obesity. Presenting with an acute complaint of abdominal pain that started around 8 AM on 08/06/2019. According to patient, he had just finished eating dinner, when he developed sharp abdominal pain, that felt like a heart attack. Patient stated that he took one of his 's nitroglycerin tablets and felt minor improvement. Patient also noticed that with onset of pain. He began to have abdominal bloating. He also admitted to shortness of breath due to his abdominal bloating. Patient admits to dry heaves, with 2 episodes of vomitus that was nonbilious, non-hemoptysis. He admits to chronic diarrhea, of 2-3 times a day of loose stool. Although he still has they recently he has began to have more formed stools. He denies any recent changes, denies any weight loss, denies any recent travels. On admission patient was hypertensive, afebrile, requiring supplemental oxygen due to decreasing O2 saturation. CT scan showed cholelithiasis, hospitalist team was called for admission with surgical consultation. HOSPITAL COURSE: Upon admission patient was started on broad-spectrum antibiotics, Zosyn for in tra-abdominal coverage. Cultures were negative and patient's medications were eventually adjusted to oral cefdinir and Flagyl. Surgery was called on consultation, who has evaluated the patient and had ordered a HIDA scan that had revealed cystic duct obstruction. Patient has been advised for outpatient follow-up with surgery for cholecystectomy. Upon discharge patient did not have any abdominal pain, nausea, vomiting or constipation. He has been tolerating a full diet without any difficulties. Patient initially was on supplemental blood pressure control medications because of pain, which has now subsided/resolved. Patient has been resumed on his oral diuretic therapy. Patient has been advised to follow-up with his primary care provider Dr. Anita Calles as well as Dr. Madden within the next 7 days he's been advised remain compliant with treatment plan and medications and return to the emergency room if he experiences any problems. DISCHARGE MEDICATIONS: Please see below. ALLERGIES: Please see below. PHYSICAL EXAMINATION ON DISCHARGE: VITAL SIGNS: Please see below. GENERAL: Patient is pleasant and cooperative, sitting up comfortably in bed, alert and oriented in no acute distress HEENT: Normocephalic, atraumatic. No scleral icterus. PERRLA. EOMI. No nasal discharge. No tracheal deviation. No obvious swollen lymph nodes CARDIOVASCULAR: Regular rate and rhythm. Normal S1 and S2. No murmurs, gallops or rubs noted RESPIRATORY: Lungs clear to auscultation bilaterally. ABDOMINAL: Abdomen appears distended. Diffusely tympanic. Normal bowel sounds in all 4 quadrants. No pain, tenderness, guarding or rigidity EXTREMITIES: 2/4 pulses noted throughout. No leg swelling or tenderness NEUROLOGICAL: A&O x3. Spontaneous movements of all extremities. No focal deficits noted PSYCHOLOGICAL: Mood and affect were appropriate LABORATORY DATA: Please see below. IMAGIN08/07/2019 abdomen/pelvis CT: Cholelithiasis. No evidence of biliary obstruction or acute cholecystitis 08/07/2019. Gallbladder ultrasound: Cholelithiasis with at least one stone measuring 2 cm in the gallbladder neck, nonmobile. No evidence of biliary obstruction or gallbladder wall thickening to convincingly suggest cholecystitis 08/07/2019. Abdominal x-ray: Nonspecific bowel gas pattern 08/08/2019 HIDA Scan: Findings are compatible with cystic duct obstruction. No common biliary duct obstruction PROGNOSIS: good ACTIVITY: [As tolerated]. DIET: Cardiac (DASH) Diet DISCHARGE PLAN: -Take medications as prescribed -Follow up with PCP in 7 days -Follow with Dr. Madden in 2 weeks to plan for Cholecystectomy -Return to hospital if Abdominal pain returns DISCHARGE CONDITION: [Stable]. TIME SPENT ON DISCHARGE: Greater than 30 minutes. Vital Signs/I&Os Vital Signs Date Time Temp Pulse Resp B/P (MAP) Pulse Ox O2 Delivery O2 Flow Rate FiO2 08/10/19 09:45 99.1 84 25 162/82 (108) 95 Room Air I&O- Last 24 Hours up to 6 AM 08/10/19 06:00 Intake Total 2273 ml Output Total 3685 ml Balance -1412 ml Laboratory Data Labs 24H Laboratory Tests 2 08/09/19 11:42: Bedside Glucose (Misc Panel) 98 08/09/19 16:32: Bedside Glucose (Misc Panel) 183H 08/09/19 19:56: Bedside Glucose (Misc Panel) 149H 08/10/19 06:39: Immature Granulocyte % (Auto) 0.8, Neutrophils (%) (Auto) 82.6H, Lymphocytes (%) (Auto) 9.2L, Monocytes (%) (Auto) 7.1H, Eosinophils (%) (Auto) 0.2, Basophils (%) (Auto) 0.1, Neutrophils # (Auto) 12.6H, Lymphocytes # (Auto) 1.4L, Monocytes # (Auto) 1.1H, Eosinophils # (Auto) 0.0, Basophils # (Auto) 0.0, Nucleated Red Blood Cells % (auto) 0.0, Anion Gap 6L, Glomerular Filtration Rate > 60.0, Calcium Level 8.3L, Total Bilirubin 0.9, Aspartate Amino Transf (AST/SGOT) 28, Alanine Aminotransferase (ALT/SGPT) 37, Alkaline Phosphatase 77, Total Protein 6.5, Albumin 2.3L, Albumin/Globulin Ratio 0.55L, Lipase 102 CBC/BMP Laboratory Tests 08/10/19 06:39 FSBS Laboratory Tests Test 08/09/19 11:42 08/09/19 16:32 08/09/19 19:56 Range/Units Bedside Glucose (Misc Panel) 98 183 149 83-110 MG/DL Microbiology Microbiology 08/07/19 Blood Culture - Preliminary, Resulted No Growth after 72 hours. All specime... 08/07/19 Blood Culture - Preliminary, Resulted No Growth after 72 hours. All specime... Discharge Medications Scheduled Amlodipine Besylate (Amlodipine Besylate) 5 Mg Tab, 5 MG PO DAILY, (Reported) Aspirin (Aspirin EC) 81 Mg Tab, 81 MG PO DAILY, (Reported) Atorvastatin Calcium (Atorvastatin Calcium) 40 Mg Tab, 40 MG PO DAILY, (Reported) Cefdinir (Cefdinir) 300 Mg Capsule, 300 MG PO BID , Take 1 tablet twice a day Dapagliflozin Propanediol (Farxiga) 10 Mg Tab, 10 MG PO DAILY, (Reported) Furosemide (Furosemide) 20 Mg Tab, 20 MG PO DAILY, (Reported) Guaifenesin/Dextromethorphan (Mucinex Dm ER 600-30 mg Tablet) 1 Each Tab.er.12h, 1 TAB PO BID, (Reported) Insulin Detemir (Levemir) 1 Units/0.01 Ml Susp, 96 UNITS SC QHS, (Reported) Lisinopril (Lisinopril) 40 Mg Tablet, 40 MG PO DAILY, (Reported) Magnesium Oxide (Magnesium) 400 Mg Capsule, 400 MG PO QHS, (Reported) Metformin HCl (Metformin HCl) 1,000 Mg Tab, 1,000 MG PO BID, (Reported) Metronidazole (Flagyl) 500 Mg Tablet, 500 MG PO Q8H Take one tablet every 8 hours Montelukast Sodium (Singulair) 10 Mg Tab, 10 MG PO QHS, (Reported) Potassium Chloride (Klor-Con M10) 10 Meq Tabcr, 10 MEQ PO QHS, (Reported) Ropinirole HCl (Ropinirole HCl) 0.5 Mg Tab, 0.5 MG PO QHS, (Reported) Tamsulosin Hcl (Tamsulosin HCl) 0.4 Mg Capsule, 0.4 MG PO QHS, (Reported) Scheduled PRN Albuterol Sulfate (Ventolin Hfa) 18 Gm Hfa.aer.ad, 2 PUFF INH Q4H PRN for SOB/WHEEZING, (Reported) Allergies Coded Allergies: codeine (Verified Allergy, Severe, anaphylaxis, 08/06/19) GME ATTESTATION GME ATTESTATION My faculty preceptor for this patient encounter was physically present during the encounter and was fully available. All aspects of the patient interview, examination, medical decision making process, and medical care plan development were reviewed and approved by the faculty preceptor. The faculty preceptor is aware and concurs with the plan as stated in the body of this note and will attest to such by his/her cosignature. ATTENDING NOTE I, Ju Lopes, have independently examined this patient and performed my own physical exam, as well as reviewed the documentation and edited where necessary. I have discussed in detail with the resident / student the findings and plan of treatment as documented by the resident / student and edited their note. I agree with their findings and treatment plan and have edited their documentation. I will continue to follow the patient during this hospital stay. Time spend on discharge 40 minutes DESTINY LEI-Lalo Aug 10, 2019 10:47 JU LOPES MD Aug 10, 2019 13:19
[2019-08-10 10:48] VITALS: BP 159/81
[2019-08-10] MEDS: amLODIPine 10 MG TAB PO SCH (10:48)
[2019-08-10] MEDS: CEFDINIR 300 MG CAP (OMNICEF) PO SCH (10:49)
[2019-08-10] MEDS: ATORVASTATIN 20 MG TAB PO SCH (10:49)
[2019-08-10] MEDS: SIMETHICONE 80 MG CHEW TAB PO SCH (10:49)
== END 2019-08-10 12:39 | disposition home or self-care (01) | DRG 445 ==
LOC: M ED 23:34 → M ED INP 08-07 02:44 → M MSPAV 08-07 04:25
PROVIDERS: ADMIT General Practice; ATTEND Internal Medicine
DX: K80.00 Calculus of gallbladder with acute cholecystitis without obstruction (principal); Z68.41 Body mass index [BMI] 40.0-44.9, adult; E11.9 Type 2 diabetes mellitus without complications; I10 Essential (primary) hypertension; E78.5 Hyperlipidemia, unspecified; J44.9 Chronic obstructive pulmonary disease, unspecified; G47.33 Obstructive sleep apnea (adult) (pediatric); E66.9 Obesity, unspecified; Z85.3 Personal history of malignant neoplasm of breast; Z96.653 Presence of artificial knee joint, bilateral; Z87.891 Personal history of nicotine dependence; Z79.82 Long term (current) use of aspirin; Z79.4 Long term (current) use of insulin; Z79.899 Other long term (current) drug therapy; Z88.6 Allergy status to analgesic agent; K59.00 Constipation, unspecified

== ENCOUNTER 2019-10-18 08:35 | Day surgery (SDC) | payer MEDICARE ==
[~2019-10-18] VITALS: Ht 172.7 cm; Wt 124.2 kg
[~2019-10-18 08:35] MED LIST changes: +CEFD300CAP PO; +FLAG500T PO; +LISI40TA PO; +LR 1,000 ML IV ONE; +MAGN400C2 PO; +MUCI1TAB18 PO; +MUCI30TA5 PO; +TAMS1CAP17 PO; +VENTAER INH
[2019-10-18] MEDS ORDERED: BUPIVACAINE/EPIN 0.25% 30 ML VIAL As Ordered ONE (09:10)
[2019-10-18] MEDS ORDERED: SUGAMMADEX SODIUM 500 MG/5 ML VIAL (BRIDION) As Ordered ONE (09:30)
[2019-10-18] MEDS ORDERED: ROCURONIUM BROMIDE 50 MG/5 ML VIAL As Ordered ONE ×2 (09:31→11:27)
[2019-10-18] MEDS ORDERED: LIDOCAINE 2% INJ 100 MG/5 ML SDV (FOR ANES.) As Ordered ONE (09:31)
[2019-10-18] MEDS ORDERED: propofoL 200 MG/20 ML VIAL As Ordered ONE (09:31)
[2019-10-18] MEDS ORDERED: fentaNYL 100 MCG/2 ML INJECTION (J3010) As Ordered ONE ×2 (09:32→11:34)
[2019-10-18] MEDS ORDERED: dexameTHASONE 4 MG/ML 1ML VIAL (J1100) As Ordered ONE (09:32)
[2019-10-18] MEDS ORDERED: ONDANSETRON 4MG/2ML VIAL (J2405) As Ordered ONE (09:32)
[2019-10-18] MEDS ORDERED: ceFAZolin 1GM INJ (J0690 PER 500MG) As Ordered ONE (09:46)
[2019-10-18] MEDS ORDERED: ceFAZolin SOD 1 GM in D5W MINI-BAG PLUS 50 ML IV ONE (10:00)
[2019-10-18] MEDS ORDERED: PHENYLephrine HCL 500 MCG/5 ML (100MCG/ML) SYRINGE (J2370) As Ordered ONE (10:44)
[2019-10-18] MEDS ORDERED: ACETAMINOPHEN 1000MG 100ML IV BTL (OFIRMEV) (J0131 PER 10MG) As Ordered ONE ×2 (12:03→14:02)
[2019-10-18] MEDS ORDERED: fentaNYL 100 MCG/2 ML INJECTION (J3010) IV PRN (13:00)
[2019-10-18] MEDS ORDERED: HYDROMORPHONE HCL 0.5 MG/ 0.5 ML SYRINGE (J1170 PER 1) IV PRN (13:00)
[2019-10-18] MEDS ORDERED: LR 1,000 ML IV SCH ×2 (13:00→14:01)
[2019-10-18] MEDS ORDERED: ONDANSETRON 4MG/2ML VIAL (J2405) IV PRN (13:00)
[2019-10-18] MEDS: LABETALOL HCL 100 MG/20 ML VIAL IV PRN ×5 (13:30→13:50)
[2019-10-18 13:50] VITALS: BP 180/77
[2019-10-18] MEDS ORDERED: amLODIPine 5 MG TAB PO ONE (14:00)
[2019-10-18 14:45] VITALS: BP 164/72
--- NOTE | 2019-10-18 17:33 | RO ---
DATE OF PROCEDURE: 10/18/2019 PREOPERATIVE DIAGNOSIS: History of acute cholecystitis. POSTOPERATIVE DIAGNOSIS: History of acute cholecystitis with possible previous perforation of the gallbladder/abscess. PROCEDURE: Laparoscopic cholecystectomy. SURGEON: Ruben Madden MD PACKAGER HEAD: ANESTHESIA: General endotracheal anesthesia. ESTIMATED BLOOD LOSS: 50 mL. FLUIDS: Crystalloid. BRIEF PROCEDURE FINDINGS: The patient had both the transverse colon and the omentum tightly adherent to the dome of the gallbladder, the gallbladder was contracted, very fibrotic and the duodenum was also tightly adherent to the neck of the gallbladder. The duodenum had some serosal tears that were repaired with interrupted Vicryl and covered with Tisseel. The patient had a necrotic posterior wall of the gallbladder with probable perforation and abscess into the liver bed. DESCRIPTION OF PROCEDURE: Brief operative summary: The patient was brought to the operating room, was given general anesthesia. After adequate anesthesia and preoperative antibiotics were given, the patient was prepped and draped in the usual sterile fashion. Next, a supraumbilical incision was made with a skin knife. Blunt dissection was carried down to fascia. Veress needle placed into the abdominal cavity, insufflated to 15 mm pressure and a dilating 10 mm trocar was placed under direct visualization. An epigastric and two lateral trocars were placed. The patient's transverse colon was up against the dome of the gallbladder as well as the omentum in this area. It was tightly adherent and quite fibrotic in this area, but I was able to mobilize this nicely and there was an adequate plane in this area. But eventually when I started retracting the gallbladder up further, there was a great deal of thickened tissue through the mid portion of the gallbladder down towards the neck of the gallbladder. And taking this down with mostly some blunt dissections, peanut dissector, there was a serosal tear that occurred and with additional retraction of the gallbladder, this seemed to extend to some extent. At this point, seeing this, I was able to get in a better plane on the gallbladder itself, which was contracted and fibrotic. But once I was able to get on this specific plane and mobilize the duodenum over in this area and under water, the stomach, duodenal area was insufflated with air showing no evidence of air leak. Later on, I was able to close this area, serosal tear area, with three interrupted #3-0 Vicryl sutures. I did bring the tails together, instead of tying knots, brought these together with some clips, and this brought it together quite nicely, covered up the area quite nicely. But, in addition, even though the repair seemed nicely adequate, Tisseel was placed over the top of this as well, covering the area. In any case, prior to performing this, I did further dissect out the gallbladder, the neck of the gallbladder, and the cystic artery was visualized on the medial aspect. I followed this onto the gallbladder itself and clipped this proximally and distally and transected it. Posterior to the gallbladder, this was very difficult to get an adequate window, but eventually after slow dissection, I was able to obtain an adequate window behind the neck of the gallbladder, getting down to the cystic duct. And once the cystic duct was visualized and a good window was obtained, seeing no branches, no evidence of other inflammatory changes, or evidence of abscess in this area, the cystic duct was clipped proximally and distally and transected. The gallbladder then was removed. First, starting this off, I was able to get up to the cystic plate and start peeling this off the gallbladder bed with electrocautery, but at almost the midportion to almost the dome area, the posterior wall was all necrotic and essentially I entered the gallbladder at this point. Thus, given its finding and I anticipate that this was so tightly adherent, fibrosed to the gallbladder or just an abscess in this area, that I took off the anterior wall/two-thirds of the gallbladder and the dome, as well as the large stone that was present. I copiously irrigated this out until clear. There was a little bit of purulent material within the gallbladder itself and necrotic debris. This irrigated out quite nicely. I put some Steve in the bed of the dissection, and the operative field was clean and dry. Next, the EndoCatch bag was used to remove the gallbladder and the stone through the umbilicus. All trocars removed under direct visualization. #0 Vicryl was used to close the fascia at the umbilicus, and all incisions were closed with #4-0 Vicryl. Steri-Strips and a dry sterile dressing was applied. The patient was awakened, extubated, brought to the recovery room awake, alert, in hemodynamically stable condition.
== END 2019-10-18 15:31 | disposition home or self-care (01) ==
LOC: M SDC 08:35
PROVIDERS: ATTEND Surgery
DX: K80.10 Calculus of gallbladder with chronic cholecystitis without obstruction (principal); K91.71 Accidental puncture and laceration of a digestive system organ or structure during a digestive system procedure; G47.30 Sleep apnea, unspecified; I10 Essential (primary) hypertension; E11.9 Type 2 diabetes mellitus without complications; Z79.4 Long term (current) use of insulin; J44.9 Chronic obstructive pulmonary disease, unspecified; Z87.891 Personal history of nicotine dependence; Z88.5 Allergy status to narcotic agent; Z85.3 Personal history of malignant neoplasm of breast; Z92.21 Personal history of antineoplastic chemotherapy; Z86.73 Personal history of transient ischemic attack (TIA), and cerebral infarction without residual deficits; Z79.82 Long term (current) use of aspirin; Z79.899 Other long term (current) drug therapy
CPT/HCPCS: 47562; 88304; A6024; J0131; J0690; J1100; J2370; J2405; J3010

== ENCOUNTER → 2019-10-26 | Outpatient (CLI) | payer MEDICARE ==
[~2019-10-26] MED LIST changes: -LR 1,000 ML IV ONE
[2019-10-26 13:33] LABS: HEMOGLOBIN A1c 7.2 %
[2019-10-26 14:04] LABS: ALBUMIN 3.1 GM/DL (3.2-5.2); ALT/SGPT 28 U/L (12-78); BILIRUBIN,TOTAL 0.5 MG/DL (0.2-1.0); BLOOD UREA NITROGEN 11 MG/DL (7-18); CALCIUM LEVEL 8.6 MG/DL (8.8-10.2); CARBON DIOXIDE LEVEL 27 MEQ/L (21-32); CHLORIDE LEVEL 109 MEQ/L (98-107); CHOLESTEROL LEVEL 107 MG/DL (<200); CHOLESTEROL RISK RATIO 2.675 (<5); CREATININE FOR GFR 0.79 MG/DL (0.70-1.30); FREE T4 1.08 NG/DL (0.76-1.46); GLOMERULAR FILTRATION RATE > 60.0 (>42); GLUCOSE, FASTING 115 MG/DL (70-100); HDL CHOLESTEROL 40 MG/DL (>40); LDL CHOLESTEROL 45 MG/DL (<100); NON-HDL-C 67 MG/DL; POTASSIUM SERUM 4.5 MEQ/L (3.5-5.1); SODIUM LEVEL 142 MEQ/L (136-145); TOTAL PROTEIN 6.9 GM/DL (6.4-8.2); TRIGLYCERIDES LEVEL 110 MG/DL (<150)
[2019-10-27 14:07] LABS: PSA TOTAL 0.9 ng/mL (0.0-4.0)
== END ==
LOC: M PLALAB 10:04
PROVIDERS: ATTEND Physician Assistant
DX: E11.65 Type 2 diabetes mellitus with hyperglycemia (principal); I10 Essential (primary) hypertension; Z12.5 Encounter for screening for malignant neoplasm of prostate

== ENCOUNTER → 2019-11-18 | Outpatient (REF) | payer MEDICARE ==
[~2019-11-18] MED LIST changes: -ROPI0.5T PO; +ROPI0.5T3 PO
== END ==
LOC: M LAB REF 13:45
PROVIDERS: ATTEND Family Medicine
DX: D48.5 Neoplasm of uncertain behavior of skin (principal)

== ENCOUNTER → 2020-01-27 | Outpatient (REF) | payer MEDICARE ==
[2020-01-27 18:03] LABS: BASO # 0.1 10^3/uL (0.0-0.2); BASO % 0.6 % (0.0-1.0); EOS # 0.2 10^3/uL (0.0-0.5); EOS % 1.9 % (0.0-3.0); HEMATOCRIT 44.2 % (42.0-52.0); HEMOGLOBIN 14.5 g/dl (13.5-17.5); LYMPH # 2.6 10^3/uL (1.5-5.0); LYMPH % 29.1 % (24.0-44.0); MEAN CORPUSCULAR HEMOGLOBIN 29.7 pg (27.0-33.0); MEAN CORPUSCULAR HGB CONC 32.8 g/dl (32.0-36.5); MEAN CORPUSCULAR VOLUME 90.6 fl (80.0-96.0); MONO # 0.7 10^3/uL (0.0-0.8); MONO % 7.8 % (0.0-5.0); NEUTROPHILS # 5.3 10^3/uL (1.5-8.5); NEUTROPHILS % 60.3 % (36.0-66.0); PLATELET COUNT, AUTOMATED 268 10^3/uL (150-450); RED BLOOD COUNT 4.88 10^6/uL (4.30-6.10); WHITE BLOOD COUNT 8.8 10^3/uL (4.0-10.0)
[2020-01-27 18:20] LABS: HEMOGLOBIN A1c 8.2 %
[2020-01-27 18:31] LABS: ALBUMIN 3.8 GM/DL (3.2-5.2); ALT/SGPT 39 U/L (12-78); BILIRUBIN,TOTAL 0.5 MG/DL (0.2-1.0); BLOOD UREA NITROGEN 14 MG/DL (7-18); CARBON DIOXIDE LEVEL 29 MEQ/L (21-32); CHLORIDE LEVEL 105 MEQ/L (98-107); CREATININE FOR GFR 0.95 MG/DL (0.70-1.30); GLOMERULAR FILTRATION RATE > 60.0 (>42); GLUCOSE, FASTING 185 MG/DL (70-100); POTASSIUM SERUM 4.5 MEQ/L (3.5-5.1); SODIUM LEVEL 139 MEQ/L (136-145); TOTAL PROTEIN 7.2 GM/DL (6.4-8.2)
[2020-01-27 18:51] LABS: CREATININE, URINE 51.8 MG/DL; MALB URINE SIEMENS 8.2 MG/L; MAU/CREAT RATIO 15.8 MCG/MG (0.0-30.0)
== END ==
LOC: M LABDRWAD 16:48
PROVIDERS: ATTEND Family Medicine
DX: E11.65 Type 2 diabetes mellitus with hyperglycemia (principal)

== ENCOUNTER → 2020-07-21 | Outpatient (CLI) | payer MEDICARE ==
[~2020-07-21] MED LIST changes: +AMLO1TAB24 PO; -AMLO5TAB6 PO
== END ==
LOC: M LABSMTC 10:04
PROVIDERS: ATTEND Physician Assistant
DX: Z01.812 Encounter for preprocedural laboratory examination (principal); Z20.828 Contact with and (suspected) exposure to other viral communicable diseases

== ENCOUNTER → 2020-09-14 | Outpatient (CLI) | payer MEDICARE | LOC: M LABSMTC 10:27 | PROVIDERS: ATTEND Physician Assistant | DX: Z01.812 Encounter for preprocedural laboratory examination (principal); Z20.828 Contact with and (suspected) exposure to other viral communicable diseases ==

== ENCOUNTER → 2020-10-18 | Outpatient (CLI) | payer MEDICARE, BC ==
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
== END ==
LOC: M PAIN 13:00
PROVIDERS: ATTEND Nurse Practitioner Family
DX: M47.897 Other spondylosis, lumbosacral region (principal); E78.5 Hyperlipidemia, unspecified; E11.9 Type 2 diabetes mellitus without complications; J44.9 Chronic obstructive pulmonary disease, unspecified; G47.33 Obstructive sleep apnea (adult) (pediatric); K64.8 Other hemorrhoids; Z86.73 Personal history of transient ischemic attack (TIA), and cerebral infarction without residual deficits; Z85.3 Personal history of malignant neoplasm of breast; Z87.891 Personal history of nicotine dependence; Z79.82 Long term (current) use of aspirin; Z79.4 Long term (current) use of insulin; Z79.899 Other long term (current) drug therapy; Z88.5 Allergy status to narcotic agent

== ENCOUNTER → 2020-10-18 | Outpatient (REF) | payer MEDICARE ==
[2020-10-18 13:21] LABS: BASO % 0.5 % (0.0-1.0); EOS # 0.2 10^3/uL (0.0-0.5); EOS % 2.2 % (0.0-3.0); HEMATOCRIT 43.9 % (42.0-52.0); HEMOGLOBIN 13.5 g/dl (13.5-17.5); LYMPH # 2.6 10^3/uL (1.5-5.0); LYMPH % 29.8 % (24.0-44.0); MEAN CORPUSCULAR HEMOGLOBIN 27.1 pg (27.0-33.0); MEAN CORPUSCULAR HGB CONC 30.8 g/dl (32.0-36.5); MEAN CORPUSCULAR VOLUME 88.2 fl (80.0-96.0); MONO # 0.7 10^3/uL (0.0-0.8); MONO % 7.6 % (0.0-5.0); NEUTROPHILS # 5.1 10^3/uL (1.5-8.5); NEUTROPHILS % 59.7 % (36.0-66.0); PLATELET COUNT, AUTOMATED 290 10^3/uL (150-450); RED BLOOD COUNT 4.98 10^6/uL (4.30-6.10); WHITE BLOOD COUNT 8.6 10^3/uL (4.0-10.0)
[2020-10-18 13:48] LABS: HEMOGLOBIN A1c 6.9 %
[2020-10-18 13:51] LABS: ALBUMIN 3.6 GM/DL (3.2-5.2); ALT/SGPT 30 U/L (12-78); BILIRUBIN,TOTAL 0.5 MG/DL (0.2-1.0); BLOOD UREA NITROGEN 17 MG/DL (7-18); CALCIUM LEVEL 8.9 MG/DL (8.8-10.2); CARBON DIOXIDE LEVEL 30 MEQ/L (21-32); CHLORIDE LEVEL 106 MEQ/L (98-107); CHOLESTEROL LEVEL 131 MG/DL (<200); CHOLESTEROL RISK RATIO 2.471 (<5); CREATININE FOR GFR 0.87 MG/DL (0.70-1.30); GLOMERULAR FILTRATION RATE > 60.0 (>42); GLUCOSE, FASTING 98 MG/DL (70-100); HDL CHOLESTEROL 53 MG/DL (>40); LDL CHOLESTEROL 60 MG/DL (<100); NON-HDL-C 78 MG/DL; POTASSIUM SERUM 4.4 MEQ/L (3.5-5.1); SODIUM LEVEL 142 MEQ/L (136-145); TOTAL PROTEIN 6.7 GM/DL (6.4-8.2); TRIGLYCERIDES LEVEL 91 MG/DL (<150)
[2020-10-19 14:12] LABS: PSA TOTAL 0.8 ng/mL (0.0-4.0)
== END ==
LOC: M LABDRWAD 12:35
PROVIDERS: ATTEND Family Medicine
DX: E11.65 Type 2 diabetes mellitus with hyperglycemia (principal); R35.0 Frequency of micturition; R97.20 Elevated prostate specific antigen [PSA]

== ENCOUNTER → 2020-10-25 | Outpatient (CLI) | payer MEDICARE, BC ==
[~2020-10-25] MED LIST changes: -LISI-538 PO; +LISI20TA33 PO; -LISI40TA PO; +LISI40TA4 PO
== END ==
LOC: M LABSMTC 11:19
PROVIDERS: ATTEND Anesthesiology
DX: Z20.822 Contact with and (suspected) exposure to COVID-19 (principal)

== ENCOUNTER → 2020-10-30 | Outpatient (CLI) | payer MEDICARE, BC ==
[~2020-10-30] MED LIST changes: +BUPIVACAINE HCL 0.25% 30ML VIAL As Ordered ONE; +ISOVUE-M 300 61% 15ML VIAL As Ordered ONE; +LIDOCAINE 1% SDV 30ML VIAL As Ordered ONE; +TRIAMCINOLONE ACETONIDE SUSP 40 MG/ML VIAL (J3301) As Ordered ONE
--- NOTE | 2020-10-30 16:33 | REP ---
INDICATION: BIALTERAL LUMBAR THERAPEUTIC FACRT BLOCK. COMPARISON: None. TECHNIQUE: Three views. Twenty-three seconds of fluoroscopy time is reported. FINDINGS: A sequence of 3 last image hold fluoroscopically obtained spot radiograph(s) of the lumbar spine document(s) needle position(s) and contrast injection associated with injection procedure. IMPRESSION: Procedural imaging. <Electronically signed by Shane Burleson > 10/30/20 [id number]
--- NOTE | 2020-11-01 00:42 | ECWPNPC ---
PATIENT NAME: TAY FERRELL JR : 1945 GENDER: MALE VISIT DATE: 10/30/2020 DISCHARGE DATE: 10/30/20 0000 VISIT LOCKED DATE TIME: PHYSICIAN: ROXANE LOREDO MD PHYSICIAN PAGER NO: ACTIVE RESOURCE: ROXANE LOREDO MD REASON FOR APPOINTMENT 1. BILATERAL THERAPEUTIC LUMBAR FACET BLOCK L3-L4, L4-L5 HISTORY OF PRESENT ILLNESS GENERAL: -. FALL RISK SCREENING: SCREENING :TWO OR MORE FALLS WITHOUT INJURY IN THE PAST YEAR PAIN SCREENING: PATIENT HAS A COMPLAINT OF ACUTE OR CHRONIC PAIN :YES LOCATION OF PAIN:LOW BACK INTENSITY OF PAIN (SCALE OF 1 TO 10):10 WHAT DOES YOUR PAIN FEEL LIKE:ACHING, CONTINOUS SPASMS AT TIMES DURATION:CONTINOUS PAIN IS INCREASED BY:OTHERS LAYING DOWN PAIN IS DECREASED BY:SITTING NURSING NOTE: -. PAIN CENTER INTAKE QUESTIONS: DO YOU HAVE A HISTORY OF MRSA? :NO DO YOU TAKE A BLOOD THINNERS? :NO DO YOU HAVE ANY BLEEDING DISORDERS? :NO ANY NEW NUMBNESS OR WEAKNESS IN YOUR LEGS OR ARMS? :NO ANY PACEMAKER,DEFIBRILLATOR, OR DORSAL COLUMN STIMULATOR? :NO DO YOU HAVE ANY RASHES OR OPEN SORES? :NO ARE YOU ALLERGIC TO IV DYE? :NO ARE YOU DIABETIC? :YES FSBS 141 ANY NEW PROBLEMS WITH YOUR MEDICATIONS? :NO HAVE YOU RECEIVED A VACCINE IN THE PAST 30 DAYS? :NO DO YOU PLAN TO RECEIVE A VACCINE IN THE NEXT 21 DAYS? :NO DO YOU TAKE ANY IMMUNOSUPPRESSIVE MEDICATIONS? :NO ANY HISTORY OF SEIZURES? :NO ANY HISTORY OF CARDIAC ISSUES OR EVENTS? :NO DO YOU HAVE SLEEP APNEA? :YES DO YOU WEAR A CPAP?NO ANY RECENT HEAD INJURY? :NO DO YOU HAVE ANY NEW INFECTIONS? :NO IS THERE A CHANCE YOU COULD BE ? :NO ARE YOU BREAST FEEDING? :NO WHEN DID YOU LAST EAT? : 10/30/2019 0800 WHEN DID YOU LAST DRINK? : 10/30/2019 1200 WHAT DID YOU LAST DRINK? : ICED TEA NAME OF PERSON DRIVING YOU HOME? : DO YOU HAVE ANY OTHER QUESTIONS OR CONCERNS? : DENIES CURRENT MEDICATIONS TAKING FARXIGA 5 MG TABLET 1 TABLET ORALLY ONCE A DAY TAKING ASPIRIN 81 MG TABLET CHEWABLE 1 TABLET ORALLY ONCE A DAY TAKING ARCADIO 180 MG TABLET 1 TABLET NEEDED ORALLY DAILY TAKING PROAIR HFA 108 (90 BASE) MCG/ACT AEROSOL SOLUTION 2 PUFFS NEEDED INHALATION EVERY 4 HRS NEEDED TAKING POTASSIUM CHLORIDE ER 10 MEQ TABLET EXTENDED RELEASE 1 TABLET WITH FOOD ORALLY DAILY TAKING LISINOPRIL 40 MG TABLET 1 TABLET ORALLY ONCE A DAY, NOTES: 10/30/2020 0800 TAKING LEVEMIR FLEXTOUCH 100 UNIT/ML INJECTABLE INJECT 60 UNITS IN THE MORNING AND 60 UNITS UNDER THE SKIN IN THE EVENING, TWICE A DAY , NOTES: 10/29/2020 TAKING FUROSEMIDE 20 MG TABLET TAKE 1 TABLET DAILY , NOTES: 10/30/2020 08 TAKING AMLODIPINE BESYLATE 5 MG TABLET TAKE 1 TABLET DAILY , NOTES: 10/30/2020799 TAKING ROPINIROLE HCL 0.5 MG TABLET 1 TABLET 1 TO 3 HOURS BEFORE BEDTIME ORALLY ONCE A DAY TAKING METFORMIN HCL 1000 MG TABLET TAKE 1 TABLET TWICE A DAY WITH MEALS , NOTES: 10/30/2020 08 TAKING MONTELUKAST SODIUM 10 MG TABLET TAKE 1 TABLET DAILY IN THE EVENING TAKING LYRICA 50 MG CAPSULE 1 CAPSULE ORALLY ONCE A DAY TAKING MAGNESIUM OXIDE 400 MG TABLET 1 TABLET NEEDED ORALLY ONCE A DAY TAKING PREVAGEN 10 MG CAPSULE DIRECTED ORALLY TAKING TRAMADOL HCL 50 MG TABLET 1 TABLET NEEDED ORALLY ONCE A DAY, NOTES: 10/30/2020 08 TAKING TAMSULOSIN HCL 0.4 MG CAPSULE 1 CAPSULE ORALLY ONCE A DAY TAKING TOUJEO SOLOSTAR 300 UNIT/ML SOLUTION PEN-INJECTOR DIRECTED SUBCUTANEOUS , NOTES: 10/29/2020 PM TAKING ADVAIR DISKUS 500-50 MCG/DOSE AEROSOL POWDER BREATH ACTIVATED 1 PUFF INHALATION ONCE A DAY TAKING MUCINEX DM MAXIMUM STRENGTH 60-1200 MG TABLET EXTENDED RELEASE 12 HOUR 1 TABLET NEEDED ORALLY EVERY 12 HRS NOT-TAKING AMIODARONE HCL 100 MG TABLET 1 TABLET ORALLY ONCE A DAY NOT-TAKING FOLIC ACID XTRA - TABLET DIRECTED ORALLY NOT-TAKING POTASSIUM CHLORIDE ER 10 MEQ CONTROLLED RELEASE TABLET TAKE 1 TABLET BY MOUTH DAILY NOT-TAKING LEVEMIR FLEXTOUCH 100 UNIT/ML SOLUTION PEN-INJECTOR 70 UNITS AM AND PM SUBCUTANEOUS TWICE DAILY NOT-TAKING BLOOD GLUCOSE TEST - STRIP DIRECTED IN VITRO DAILY NOT-TAKING BD PEN NEEDLE MINI U/F 31G X 5 MM MISCELLANEOUS DIRECTED INTRADERMALLY TWICE A DAY TO BE USED WITH THE LEVEMIR NOT-TAKING MULTIVITAMIN ADULT - TABLET 1 TAB ORALLY DAILY NOT-TAKING LEVEMIR FLEXTOUCH 100U/ML SOLUTION PEN-INJECTOR INJECT 60 UNITS IN THE MORNING AND 60 UNITS UNDER THE SKIN IN THE EVENING, TWICE A DAY NOT-TAKING ATORVASTATIN CALCIUM 10 MG TABLET TAKE 1 TABLET DAILY ORALLY NOT-TAKING AMLODIPINE BESYLATE 5 MG TABLET 1 TABLET ORALLY ONCE A DAY MEDICATION LIST REVIEWED AND RECONCILED WITH THE PATIENT PAST MEDICAL HISTORY HYPERLIPIDEMIA DIABETES MELLITUS TYPE 2 COPD HYPERTENSION TIA (2000) LEFT BREAST CANCER STATES KNOWN SHRAPNEL FROM WAR INJURIES STATES OBSTRUCTIVE SLEEP APNEA, BUT NOT USING CPAP 10 YEAR ASCVD RISK 41.21% (08/2016) INTERNAL HEMORRHOIDS DRY EYES WITH BLEPHAROSPASM, BILATERAL VITREOUS DEGENERATION AND HYPERTENSIVE (NOT DIABETIC) RETINOPATHY ALLERGIES CODEINE PHOSPHATE: ANAPHYLAXIS - ALLERGY SOCIAL HISTORY GENERAL: TOBACCO USE ARE YOU A:FORMER SMOKER 3 PPD X 20 YEARS HOW LONG HAS IT BEEN SINCE YOU LAST SMOKED?> 10 YEARS LATEX QUESTIONNAIRE LATEX ALLERGY : HAVE YOU EVER DEVELOPED ANY TYPE OF REACTION AFTER HANDLING LATEX PRODUCTS SUCH RUBBER GLOVES, CONDOMS, DIAPHRAGMS, BALLOONS, SOCKS, OR UNDERWEAR?NO LATEX ALLERGY : HAVE YOU EVER DEVELOPED ANY TYPE OF REACTION DURING OR AFTER DENTAL APPOINTMENT, VAGINAL/RECTAL EXAMINATION, SURGICAL PROCEDURE, OR ANY OTHER EXPOSURE?NO LATEX RISK : HAVE YOU EVER HAD ANY DIFFICULTY BREATHING OR HIVES AFTER EATING OR HANDLING ANY FRUITS, OR VEGETABLES; SUCH KIWI, BANANAS, STONE FRUITS, OR CHESTNUTSNO LATEX RISK : DO YOU HAVE A PREVIOUS PERSONAL HISTORY OF MORE THAN NINE SURGERIES, SPINA BIFIDA, OR REPEATED CATHERIZATIONS? NO LATEX RISK : ARE YOU FREQUENTLY EXPOSED TO LATEX PRODUCTS IN YOUR OCCUPATION?NO DATE ASKED : 10/30/2020 BMI CARE GOAL FOLLOW-UP ABOVE NORMAL BMI FOLLOW-UPDIETARY MANAGEMENT EDUCATION, GUIDANCE, AND COUNSELING ALCOHOL SCREENING DID YOU HAVE A DRINK CONTAINING ALCOHOL IN THE PAST YEAR?YES HOW OFTEN DID YOU HAVE SIX OR MORE DRINKS ON ONE OCCASION IN THE PAST YEAR?NEVER (0 POINTS) HOW MANY DRINKS DID YOU HAVE ON A TYPICAL DAY WHEN YOU WERE DRINKING IN THE PAST YEAR?1 OR 2 (0 POINTS) HOW OFTEN DID YOU HAVE A DRINK CONTAINING ALCOHOL IN THE PAST YEAR?MONTHLY OR LESS (1 POINT) POINTS1 INTERPRETATIONNEGATIVE RECREATIONAL DRUG USE DRUG USE?NO CAFFEINE CAFFEINE USE?YES 2 CUPS/DAY SEXUAL HX HAD SEX IN THE LAST 12 MONTHS (VAGINAL, ORAL, OR ANAL)?YES WITHWOMEN ONLY HAVE YOU EVER HAD AN STD?NO CONGREGATIONAL NO FAITH BELIEFS THAT WOULD IMPACT HEALTH CARE. LANGUAGE HUNGARIAN. LEARNING BARRIERS / SPECIAL NEEDS CHANGE FROM LAST VISIT?NO BARRIERS TO LEARNING?NO HEARING IMPAIRED?NO VISION IMPAIRED?YES COGNITIVELY IMPAIRED?NO :CORRECTIVE LENSES READINESS TO LEARN?YES LEARNING PREFERENCES?NO LEARNING CAPABILITIES PRESENT?YES EMOTIONAL BARRIERS?NO SPECIAL DEVICES?YES :WALKER DOMESTIC VIOLENCE NONE. 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 EXERCISE: NO REGULAR EXERCISE. MARITAL STATUS: . OTHERS AT HOME: , YOUNGEST SON. VITAL SIGNS WT 284.8 LBS, HT 67.5 IN, BMI 43.94 INDEX, BP 158/67 MM HG, HR 87 /MIN, RR 18 /MIN, TEMP 97.5 F, OXYGEN SAT % 93%, BLOOD GLUCOSE LEVEL 141, SAFE IN ENV? (Y/N) YES, REVIEWED BY: Tin GAYTAN RN. EXAMINATION GENERAL EXAMINATION: THE PATIENT IS ALERT, ORIENTED TIMES THREE AND COOPERATIVE. LUNGS ARE CLEAR TO AUSCULTATION. HEART SHOWS REGULAR RHYTHM, NO MURMURS AND NO GALLOPS. ASSESSMENTS SPONDYLOSIS WITHOUT MYELOPATHY OR RADICULOPATHY, LUMBAR REGION - M47.816 (PRIMARY) TREATMENT SPONDYLOSIS WITHOUT MYELOPATHY OR RADICULOPATHY, LUMBAR REGION [facility] FACET BLOCK (PAIN)[id number] COMPLETION OF PROCEDURAL VISIT WHEN MEETS CRITERIAREMA SKELTON 10/30/2020 4:26:37 PM > CRITERIA MET PROCEDURES PAIN NURSING RECORD PROCEDURE IN ROOM 1034, PHYSICIAN IN ROOM 1600, START 1605, FINISH 1612, PHYSICIAN OUT OF ROOM 1613, OUT OF ROOM 1620, ECG NORMAL SINUS, PATIENT SHIELDED YES, SAFETY STRAP YES, PREP CHLOROPREP BY Ary AHMADI RN, DRESSING TEGADERM BY DR LOREDO LOC: 1. ALERT, ORIENTED, REMA SKELTON 10/30/2020 3:39:21 PM > RESP: 1. REGULAR, NO DYSPNEA, REMA SKELTON 10/30/2020 3:39:25 PM > COLOR: 1. PINK, REMA SKELTON 10/30/2020 3:39:29 PM > SKIN: 1. WARM, DRY, REMA SKELTON 10/30/2020 3:39:33 PM > POSITION: 1. PRONE, REMA SKELTON 10/30/2020 3:39:37 PM > VITALS: REMA SKELTON 10/30/2020 3:39:50 PM > 148/75-88-18-94% , REMA SKELTON 10/30/2020 3:45:17 PM > 164/71-79-18-92% , REMA SKELTON 10/30/2020 4:00:03 PM > 168/69-77-18-91% , REMA SKELTON 10/30/2020 4:29:12 PM > 146/74-88-16-94% NOTES Madison GAYTAN RN COMPLETION OF PROCEDURE APPOINTMENT: POST PAIN 6 BILATERAL LOWER BACK, DRESSING SITE DRY AND INTACT BILATERAL LOW BACK, IV N/A, GAIT STEADY WITH ROLLING WALKER, TEACHING COMPLETED, PATIENT ACKNOWLEDGES UNDERSTANDING YES PT VERBALIZES UNDERSTANDING OF POST PROCEDURE INSTRUCTIONS, PROCEDURE APPOINTMENT COMPLETED AT 1633 BY: Madison GAYTAN RN PN LUMBAR FACET BLOCK THERAPEUTIC PRE PROCEDURE DIAGNOSIS LUMBAR SPONDYLOSIS POST PROCEDURE DIAGNOSIS LUMBAR SPONDYLOSIS PROCEDURE BILATERAL L3-L4 AND BILATERAL L4-L5 LUMBAR FACET THERAPEUTIC BLOCK SURGEON DR. ROXANE LOREDO SUPERVISOR PUBL[employer] PRODUCTION NONE ANESTHESIA LOCAL PRE PROCEDURE NOTE THE PATIENT HAS A HISTORY OF CHRONIC LOW BACK PAIN. I EVALUATED THE PATIENT AND REVIEWED THE CHART. I WENT OVER THE RISKS, ALTERNATIVES, AND BENEFITS ASSOCIATED WITH THIS PROCEDURE. THE PATIENT WOULD LIKE TO PROCEED AND GIVES CONSENT TO PERFORM THE PROCEDURE. THE PATIENT DENIES UNEXPLAINABLE WEIGHT LOSS, FEVER, CHILLS, OR NEW CHANGES IN URINARY OR BOWEL CONTROL. THE PATIENT IS COVID-19 NEGATIVE DESCRIPTION OF PROCEDURE THE PATIENT WAS BROUGHT TO THE PROCEDURE ROOM AND PLACED IN THE PRONE POSITION. THE LUMBOSACRAL AREA WAS CLEANED WITH CHLORAPREP SOLUTION AND DRAPED ASEPTICALLY. THE PROCEDURE WAS DONE UNDER STERILE CONDITIONS. A TIMEOUT WAS PERFORMED WHERE THE CONSENTED SITE WAS VERIFIED WITH EVERYONE IN THE ROOM. UNDER FLUOROSCOPIC GUIDANCE, THE TARGET POINT WAS SELECTED AT THE RIGHT AND LEFT L3-L4 AND RIGHT AND LEFT L4-L5 FACET JOINTS. TARGET POINT WAS SELECTED AFTER LATERAL ROTATION AND TILT OF THE MAGNIFIER OF THE C-ARM. I CONFIRMED AGAIN WITH EVERYONE THE SITE OF THE TARGET. LIDOCAINE 0.5% WAS USED TO NUMB THE SKIN AND THE SUBCUTANEOUS TISSUE BELOW IT. SPINAL NEEDLES, 22-GAUGE, WERE ADVANCED UNDER FLUOROSCOPIC GUIDANCE AND FOLLOWING PATIENT FEEDBACK UNTIL THE TARGETS WERE TOUCHED. THE POSITION OF THE NEEDLES WAS VERIFIED WITH AP AND LATERAL VIEWS. AFTER PROPER POSITION OF THE NEEDLES WAS ACHIEVED, ISOVUE-M DYE 30%, 0.1 ML, WAS INJECTED SHOWING ADEQUATE SPREAD OF THE DYE. KENALOG 10 MG WAS INJECTED AT EACH SITE. THEN, A SOLUTION OF 1.0 ML OF BUPIVACAINE 0.125% OF WAS USED TO FLUSH EACH SITE. THE MEDICATION WAS VERIFIED WITH THE NURSE. THERE WAS NO EVIDENCE OF BLOOD, PARESTHESIA OR CEREBROSPINAL FLUID DURING THE PROCEDURE. THE PATIENT WAS SENT TO THE RECOVERY ROOM. THE PATIENT WAS MOVING THE EXTREMITIES AND DOING WELL. THERE WERE NO COMPLICATIONS DURING THE PROCEDURE. ESTIMATED BLOOD LOSS WAS LESS THAN 5 ML. FLUOROSCOPY TIME WAS 22 SECONDS POST PROCEDURE NOTE THE PATIENT WILL BE SEEN IN A FOLLOW UP IN THE NEXT FEW WEEKS. I AM LOOKING FOR LONG LASTING RELIEF FOR THE PATIENT WITH THIS INTERVENTION. INSTRUCTIONS WERE GIVEN, QUESTIONS WERE ANSWERED, AND THE PATIENT EXPRESSED UNDERSTANDING AND AGREES WITH THE PLAN. I, SOFIA MCCALL, DOCUMENTED THE ABOVE INFORMATION ACTING A SCRIBE FOR DR. LOREDO. I HAVE REVIEWED THE ABOVE DOCUMENT, WRITTEN BY SOFIA MCCALL, LINSEED OIL PRESS TENDER, AND I VERIFY THAT IT IS ACCURATE PROCEDURE CODES 26868 INJ PARAVERT F JNT L/S 1 LEV, MODIFIERS: [id number] INJ PARAVERT F JNT L/S 2 LEV, MODIFIERS: 50 DISPOSITION & COMMUNICATION FOLLOW UP FOLLOW UP WITH [employer] (REASON: POST BILATERAL THERAPEUTIC LUMBAR FACET BLOCK L3-L4, L4-L5) ELECTRONICALLY SIGNED BY ROXANE LOREDO MD, MD ON 10/31/2020 AT 03:10 PM EST DISCLAIMER : THIS IS A VISIT SUMMARY EXTRACTED FROM THE [employer] CHART. IT IS NOT A COPY OF THE [employer] PROGRESS NOTE. MTDD
== END ==
LOC: M PAIN 14:00
PROVIDERS: ATTEND Anesthesiology
DX: M47.816 Spondylosis without myelopathy or radiculopathy, lumbar region (principal); E78.5 Hyperlipidemia, unspecified; E11.9 Type 2 diabetes mellitus without complications; G47.33 Obstructive sleep apnea (adult) (pediatric); J44.9 Chronic obstructive pulmonary disease, unspecified; I10 Essential (primary) hypertension; Z87.891 Personal history of nicotine dependence; Z79.82 Long term (current) use of aspirin; Z79.4 Long term (current) use of insulin; Z79.899 Other long term (current) drug therapy
CPT/HCPCS: 64493; 64494; J3301; Q9967

== ENCOUNTER → 2020-11-27 | Outpatient (REF) | payer MEDICARE ==
[~2020-11-27] MED LIST changes: -BUPIVACAINE HCL 0.25% 30ML VIAL As Ordered ONE; -ISOVUE-M 300 61% 15ML VIAL As Ordered ONE; -LIDOCAINE 1% SDV 30ML VIAL As Ordered ONE; -TRIAMCINOLONE ACETONIDE SUSP 40 MG/ML VIAL (J3301) As Ordered ONE
[2020-11-27 13:05] LABS: BASO % 0.3 % (0.0-1.0); EOS # 0.2 10^3/uL (0.0-0.5); EOS % 1.9 % (0.0-3.0); HEMATOCRIT 44.2 % (42.0-52.0); HEMOGLOBIN 13.5 g/dl (13.5-17.5); LYMPH # 2.8 10^3/uL (1.5-5.0); LYMPH % 28.7 % (24.0-44.0); MEAN CORPUSCULAR HEMOGLOBIN 27.7 pg (27.0-33.0); MEAN CORPUSCULAR HGB CONC 30.5 g/dl (32.0-36.5); MEAN CORPUSCULAR VOLUME 90.6 fl (80.0-96.0); MONO # 0.8 10^3/uL (0.0-0.8); MONO % 8.2 % (2.0-8.0); NEUTROPHILS # 5.9 10^3/uL (1.5-8.5); NEUTROPHILS % 60.5 % (36.0-66.0); PLATELET COUNT, AUTOMATED 268 10^3/uL (150-450); RED BLOOD COUNT 4.88 10^6/uL (4.30-6.10); WHITE BLOOD COUNT 9.7 10^3/uL (4.0-10.0)
[2020-11-27 13:28] LABS: HEMOGLOBIN A1c 6.7 %
[2020-11-27 13:41] LABS: BLOOD UREA NITROGEN 20 MG/DL (7-18); CARBON DIOXIDE LEVEL 30 MEQ/L (21-32); CHLORIDE LEVEL 106 MEQ/L (98-107); CREATININE FOR GFR 0.93 MG/DL (0.70-1.30); GLOMERULAR FILTRATION RATE > 60.0 (>42); GLUCOSE, FASTING 104 MG/DL (70-100); POTASSIUM SERUM 4.4 MEQ/L (3.5-5.1); SODIUM LEVEL 144 MEQ/L (136-145)
== END ==
LOC: M LABDRWAD 12:22
PROVIDERS: ATTEND Physician Assistant
DX: Z01.818 Encounter for other preprocedural examination (principal)

== ENCOUNTER → 2021-04-25 | Outpatient (REF) | payer MEDICARE ==
[2021-04-25 12:54] LABS: BASO # 0.1 10^3/uL (0.0-0.2); BASO % 0.5 % (0.0-1.0); EOS # 0.1 10^3/uL (0.0-0.5); EOS % 0.9 % (0.0-3.0); HEMATOCRIT 37.6 % (42.0-52.0); LYMPH # 2.3 10^3/uL (1.5-5.0); LYMPH % 22.3 % (24.0-44.0); MEAN CORPUSCULAR HGB CONC 29.3 g/dl (32.0-36.5); MEAN CORPUSCULAR VOLUME 78.5 fl (80.0-96.0); MONO # 0.8 10^3/uL (0.0-0.8); MONO % 8.1 % (2.0-8.0); NEUTROPHILS % 67.8 % (36.0-66.0); PLATELET COUNT, AUTOMATED 390 10^3/uL (150-450); RED BLOOD COUNT 4.79 10^6/uL (4.30-6.10); WHITE BLOOD COUNT 10.3 10^3/uL (4.0-10.0)
[2021-04-25 13:41] LABS: BLOOD UREA NITROGEN 15 MG/DL (7-18); CALCIUM LEVEL 8.5 MG/DL (8.8-10.2); CARBON DIOXIDE LEVEL 27 MEQ/L (21-32); CHLORIDE LEVEL 107 MEQ/L (98-107); CREATININE FOR GFR 0.86 MG/DL (0.70-1.30); GLOMERULAR FILTRATION RATE > 60.0 (>42); GLUCOSE, FASTING 185 MG/DL (70-100); POTASSIUM SERUM 4.6 MEQ/L (3.5-5.1); SODIUM LEVEL 140 MEQ/L (136-145)
[2021-04-25 13:42] LABS: ALBUMIN 3.5 GM/DL (3.2-5.2); ALT/SGPT 33 U/L (12-78); BILIRUBIN,TOTAL 0.3 MG/DL (0.2-1.0); CHOLESTEROL LEVEL 145 MG/DL (<200); FREE T4 0.77 NG/DL (0.76-1.46); HDL CHOLESTEROL 48 MG/DL (>40); LDL CHOLESTEROL 68 MG/DL (<100); NON-HDL-C 97 MG/DL; TOTAL PROTEIN 6.6 GM/DL (6.4-8.2); TRIGLYCERIDES LEVEL 144 MG/DL (<150)
[2021-04-25 13:51] LABS: HEMOGLOBIN A1c 7.2 %
[2021-04-25 15:02] LABS: FERRITIN 8 NG/ML (26-388); IRON (FE) 28 UG/DL (65-175); PERCENT SATURATION 7.5 % (19.7-50.0); TOTAL IRON BINDING CAPACITY 374 UG/DL (250-450)
== END ==
LOC: M LAB REF 12:29 → M LABDRWAD 12:29
PROVIDERS: ATTEND Physician Assistant
DX: J44.9 Chronic obstructive pulmonary disease, unspecified (principal); E11.65 Type 2 diabetes mellitus with hyperglycemia; E78.2 Mixed hyperlipidemia

== ENCOUNTER → 2021-05-08 | Outpatient (REF) | payer MEDICARE | LOC: M LABDRWAD 17:13 | PROVIDERS: ATTEND Family Medicine | DX: R39.12 Poor urinary stream (principal) ==

== ENCOUNTER → 2021-05-15 | Outpatient (REF) | payer MEDICARE ==
[2021-05-15 18:34] LABS: APPEARANCE, URINE CLEAR (CLEAR); BACTERIA, URINE AUTO NEGATIVE (NEGATIVE); BILIRUBIN, URINE AUTO NEGATIVE (NEGATIVE); BLOOD, URINE BLOOD NEGATIVE (NEGATIVE); COLOR, URINE STRAW (YELLOW); GLUCOSE, URINE (UA) AUTO 3+ mg/dL (NEGATIVE); KETONE, URINE AUTO NEGATIVE (NEGATIVE); LEUKOCYTE ESTERASE, URINE AUTO NEGATIVE (NEGATIVE); NITRITE, URINE AUTO NEGATIVE (NEGATIVE); PROTEIN, URINE AUTO NEGATIVE (NEGATIVE); RBC, URINE AUTO 0 /HPF (0-3); SPECIFIC GRAVITY URINE AUTO 1.016 (1.002-1.035); SQUAMOUS EPITHELIAL CELL UR AU 0 /HPF (0-6); UROBILINOGEN, URINE AUTO 0.2 mg/dL (0.0-2.0); WBC, URINE AUTO 0 /HPF (0-3)
== END ==
LOC: M SMT 18:01
PROVIDERS: ATTEND Nurse Practitioner Family
DX: R39.198 Other difficulties with micturition (principal)

== ENCOUNTER → 2021-06-06 | Outpatient (REF) | payer MEDICARE ==
[~2021-06-06] MED LIST changes: -KLOR10TA76 PO; +POTA-136 PO; +SEMA1PEN2 SQ; +TOUJ1.2I SC
[2021-06-06 16:20] LABS: CREATININE, URINE 43.5 MG/DL; MALB URINE SIEMENS 54.5 MG/L; MAU/CREAT RATIO 125.2 MCG/MG (0.0-30.0)
== END ==
LOC: M LAB REF 14:45
PROVIDERS: ATTEND Internal Medicine Endocrinology, Diabetes & Metabolism
DX: E11.65 Type 2 diabetes mellitus with hyperglycemia (principal)

== ENCOUNTER → 2021-06-14 | Outpatient (CLI) | payer MEDICARE ==
[~2021-06-14] MED LIST changes: +KLOR10TA76 PO; -POTA-136 PO
== END ==
LOC: M LABSMTC 11:37
PROVIDERS: ATTEND Anesthesiology
DX: Z01.812 Encounter for preprocedural laboratory examination (principal); Z20.822 Contact with and (suspected) exposure to COVID-19

== ENCOUNTER 2021-06-19 08:58 | Day surgery (SDC) | payer MEDICARE ==
[~2021-06-19] VITALS: Ht 167.6 cm; Wt 118.8 kg
[~2021-06-19 08:58] MED LIST changes: -KLOR10TA76 PO; +NS 1,000 ML IV ONE; +POTA-136 PO
[2021-06-19] MEDS ORDERED: propofoL 200 MG/20 ML VIAL As Ordered ONE ×2 (09:55→10:50)
[2021-06-19] MEDS ORDERED: LIDOCAINE 2% 100MG/5ML SDV (FOR ANES.) As Ordered ONE (09:55)
[2021-06-19 11:08] VITALS: BP 192/79
== END 2021-06-19 11:10 | disposition home or self-care (01) ==
LOC: M OPP 08:58
PROVIDERS: ATTEND Surgery
DX: K62.1 Rectal polyp (principal); K64.0 First degree hemorrhoids; D50.9 Iron deficiency anemia, unspecified; K29.70 Gastritis, unspecified, without bleeding; E11.9 Type 2 diabetes mellitus without complications; J44.9 Chronic obstructive pulmonary disease, unspecified; Z79.899 Other long term (current) drug therapy; Z88.5 Allergy status to narcotic agent

== ENCOUNTER → 2021-08-02 | Outpatient (REF) | payer MEDICARE ==
[~2021-08-02] MED LIST changes: -NS 1,000 ML IV ONE
[2021-08-02 13:01] LABS: BASO % 0.4 % (0.0-1.0); EOS # 0.1 10^3/uL (0.0-0.5); EOS % 1.2 % (0.0-3.0); HEMATOCRIT 37.4 % (42.0-52.0); HEMOGLOBIN 11.2 g/dl (13.5-17.5); LYMPH # 2.1 10^3/uL (1.5-5.0); LYMPH % 25.5 % (24.0-44.0); MEAN CORPUSCULAR HEMOGLOBIN 23.5 pg (27.0-33.0); MEAN CORPUSCULAR HGB CONC 29.9 g/dl (32.0-36.5); MEAN CORPUSCULAR VOLUME 78.6 fl (80.0-96.0); MONO # 0.6 10^3/uL (0.0-0.8); MONO % 7.2 % (2.0-8.0); NEUTROPHILS # 5.4 10^3/uL (1.5-8.5); NEUTROPHILS % 65.5 % (36.0-66.0); PLATELET COUNT, AUTOMATED 332 10^3/uL (150-450); RED BLOOD COUNT 4.76 10^6/uL (4.30-6.10); WHITE BLOOD COUNT 8.2 10^3/uL (4.0-10.0)
[2021-08-02 13:28] LABS: ALBUMIN 3.3 GM/DL (3.2-5.2); ALT/SGPT 26 U/L (12-78); BILIRUBIN,TOTAL 0.3 MG/DL (0.2-1.0); BLOOD UREA NITROGEN 11 MG/DL (7-18); CALCIUM LEVEL 9.3 MG/DL (8.8-10.2); CARBON DIOXIDE LEVEL 27 MEQ/L (21-32); CHLORIDE LEVEL 108 MEQ/L (98-107); CREATININE FOR GFR 0.81 MG/DL (0.70-1.30); FERRITIN 7 NG/ML (26-388); GLOMERULAR FILTRATION RATE > 60.0 (>42); GLUCOSE, FASTING 208 MG/DL (70-100); IRON (FE) 26 UG/DL (65-175); PERCENT SATURATION 7.1 % (19.7-50.0); POTASSIUM SERUM 4.1 MEQ/L (3.5-5.1); SODIUM LEVEL 142 MEQ/L (136-145); TOTAL IRON BINDING CAPACITY 367 UG/DL (250-450); TOTAL PROTEIN 6.4 GM/DL (6.4-8.2)
[2021-08-02 13:44] LABS: HEMOGLOBIN A1c 8.1 %
== END ==
LOC: M LABDRWAD 12:36 → M LAB REF 12:36
PROVIDERS: ATTEND Family Medicine
DX: E11.65 Type 2 diabetes mellitus with hyperglycemia (principal); D50.9 Iron deficiency anemia, unspecified

== ENCOUNTER → 2021-10-01 | Outpatient (CLI) | payer MEDICARE | LOC: M RAD 07:31 | PROVIDERS: ATTEND Nurse Practitioner Family | DX: N20.0 Calculus of kidney (principal) ==

== ENCOUNTER → 2021-11-11 | Outpatient (REF) | payer MEDICARE ==
[2021-11-11 13:22] LABS: BASO % 0.4 % (0.0-1.0); EOS # 0.1 10^3/uL (0.0-0.5); EOS % 1.1 % (0.0-3.0); HEMATOCRIT 40.2 % (42.0-52.0); HEMOGLOBIN 12.2 g/dl (13.5-17.5); LYMPH # 2.2 10^3/uL (1.5-5.0); MEAN CORPUSCULAR HEMOGLOBIN 25.2 pg (27.0-33.0); MEAN CORPUSCULAR HGB CONC 30.3 g/dl (32.0-36.5); MEAN CORPUSCULAR VOLUME 82.9 fl (80.0-96.0); MONO # 0.8 10^3/uL (0.0-0.8); MONO % 8.2 % (2.0-8.0); NEUTROPHILS # 6.1 10^3/uL (1.5-8.5); PLATELET COUNT, AUTOMATED 333 10^3/uL (150-450); RED BLOOD COUNT 4.85 10^6/uL (4.30-6.10); WHITE BLOOD COUNT 9.2 10^3/uL (4.0-10.0)
[2021-11-11 14:05] LABS: ALBUMIN 3.2 GM/DL (3.2-5.2); ALT/SGPT 36 U/L (12-78); BILIRUBIN,TOTAL 0.2 MG/DL (0.2-1.0); BLOOD UREA NITROGEN 15 MG/DL (7-18); CALCIUM LEVEL 8.7 MG/DL (8.8-10.2); CARBON DIOXIDE LEVEL 28 MEQ/L (21-32); CHLORIDE LEVEL 109 MEQ/L (98-107); CHOLESTEROL LEVEL 127 MG/DL (<200); FREE T4 0.84 NG/DL (0.76-1.46); GLOMERULAR FILTRATION RATE > 60.0 (>42); GLUCOSE, FASTING 155 MG/DL (70-100); HDL CHOLESTEROL 46 MG/DL (>40); IRON (FE) 32 UG/DL (65-175); LDL CHOLESTEROL 59 MG/DL (<100); NON-HDL-C 81 MG/DL; PERCENT SATURATION 8.7 % (19.7-50.0); POTASSIUM SERUM 4.7 MEQ/L (3.5-5.1); SODIUM LEVEL 143 MEQ/L (136-145); TOTAL IRON BINDING CAPACITY 369 UG/DL (250-450); TOTAL PROTEIN 6.6 GM/DL (6.4-8.2); TRIGLYCERIDES LEVEL 111 MG/DL (<150)
[2021-11-11 14:46] LABS: HEMOGLOBIN A1c 7.8 %
== END ==
LOC: M LABDRWAD 12:28
PROVIDERS: ATTEND Physician Assistant
DX: E11.65 Type 2 diabetes mellitus with hyperglycemia (principal); I10 Essential (primary) hypertension; E78.2 Mixed hyperlipidemia; D50.9 Iron deficiency anemia, unspecified

== ENCOUNTER → 2023-10-29 | Outpatient (REF) | payer MEDICARE ==
[~2023-10-29] MED LIST changes: +MONT-5 PO; -ROPI0.5T3 PO; +ROPI0.5T33 PO; -SING10TA32 PO
[2023-10-29 16:23] LABS: BASO % 0.3 % (0.0-1.0); EOS # 0.5 10^3/uL (0.0-0.5); EOS % 4.1 % (0.0-3.0); HEMATOCRIT 32.3 % (42.0-52.0); HEMOGLOBIN 9.1 g/dl (13.5-17.5); LYMPH # 1.8 10^3/uL (1.5-5.0); LYMPH % 15.1 % (24.0-44.0); MEAN CORPUSCULAR HGB CONC 28.2 g/dl (32.0-36.5); MEAN CORPUSCULAR VOLUME 85.2 fl (80.0-96.0); MONO % 8.5 % (2.0-8.0); NEUTROPHILS # 8.5 10^3/uL (1.5-8.5); NEUTROPHILS % 71.7 % (36.0-66.0); PLATELET COUNT, AUTOMATED 455 10^3/uL (150-450); RED BLOOD COUNT 3.79 10^6/uL (4.30-6.10); WHITE BLOOD COUNT 11.9 10^3/uL (4.0-10.0)
[2023-10-29 16:48] LABS: BLOOD UREA NITROGEN 12 MG/DL (9-23); CALCIUM LEVEL 8.4 MG/DL (8.3-10.6); CARBON DIOXIDE LEVEL 30 MMOL/L (20-31); CHLORIDE LEVEL 103 MMOL/L (98-107); CREATININE FOR GFR 1.21 MG/DL (0.70-1.30); GLOMERULAR FILTRATION RATE > 60.0 (>42); GLUCOSE, FASTING 127 MG/DL (74-106); POTASSIUM SERUM 3.6 MMOL/L (3.5-5.1); SODIUM LEVEL 139 MMOL/L (136-145)
== END ==
LOC: M LABDRWAD 15:52
PROVIDERS: ATTEND Student in an Organized Health Care Education/Training Program
DX: D50.9 Iron deficiency anemia, unspecified (principal); I67.82 Cerebral ischemia; I10 Essential (primary) hypertension; E11.9 Type 2 diabetes mellitus without complications

== ENCOUNTER → 2023-11-23 | Outpatient (REF) | payer MEDICARE ==
[2023-11-23 16:22] LABS: HEMOGLOBIN A1c 5.6 % (4.0-6.0)
== END ==
LOC: M LABDRWAD 15:02
PROVIDERS: ATTEND Student in an Organized Health Care Education/Training Program
DX: E11.9 Type 2 diabetes mellitus without complications (principal)

== ENCOUNTER → 2023-11-23 | Outpatient (REF) | payer MEDICARE ==
[2023-11-23 13:29] LABS: APPEARANCE, BODY FLUID CLEAR (CLEAR); PLEURAL FL COLOR PALE YELLOW (COLORLESS); SOURCE, BODY FLUID PLEURAL
[2023-11-23 13:44] LABS: SOURCE, BODY FLUID ALBUMIN PLEURAL
[2023-11-23 13:49] LABS: SOURCE, BODY FLUID GLUCOSE PLEURAL; SOURCE, BODY FLUID LIPASE PLEURAL; SOURCE, BODY FLUID TRIG PLEURAL; TRIGLYCERIDE, BODY FLUID 14.99999 MG/DL (NOT ESTABLISHED)
[2023-11-23 13:51] LABS: LDH, BODY FLUID 76 U/L (NOT ESTABLISHED); SOURCE, BODY FLUID LDH PLEURAL; SOURCE, BODY FLUID TOT PROTEIN PLEURAL; TOTAL PROTEIN, BODY FLUID < 2.0 G/DL (NOT ESTABLISHED)
== END ==
LOC: M LAB REF 12:49
PROVIDERS: ATTEND Thoracic Surgery (Cardiothoracic Vascular Surgery)
DX: J90 Pleural effusion, not elsewhere classified (principal); I50.9 Heart failure, unspecified

== ENCOUNTER → 2024-11-30 | Outpatient (REF) | payer MEDICARE ==
[~2024-11-30] MED LIST changes: -ADV500INH INH; +ADVA1AER10 INH
== END ==
LOC: M SFHCDERM 13:09
PROVIDERS: ATTEND Physician Assistant
DX: L82.0 Inflamed seborrheic keratosis (principal)